=== PATIENT | female | born 1955 | race Caucasian/White ===

== ENCOUNTER 2016-07-24 18:20 | Inpatient (IN) | payer MEDICAID ==
[~2016-07-24] VITALS: Ht 162.6 cm; Wt 72.1 kg
[2016-07-24] MEDS ORDERED: AMLO5TAB66 PO (18:52)
[2016-07-24] MEDS ORDERED: HYDR25TA PO (18:52)
[2016-07-24] MEDS ORDERED: LOSA25TA21 PO (18:52)
[2016-07-24] MEDS ORDERED: BARIUM SULFATE 0.1% SUSPENSION 450 ML BOTTLE PO ONE (21:15)
[2016-07-24 21:27] LABS: BASOPHILS % (AUTO) 0.8 % (0.0-2.0); CALCIUM, TOTAL 7.3 mg/dL (8.8-10.5); CREATININE 4.89 mg/dL (0.60-1.30); EOSINOPHILS % (AUTO) 2.1 % (1.0-6.0); HEMATOCRIT 21.6 % (36-46); HEMOGLOBIN 7.2 g/dL (12.0-16.0); LYMPHOCYTES # (AUTO) 0.8 K/uL (1.0-4.8); LYMPHOCYTES % (AUTO) 17.3 % (22.0-44.0); MEAN CORPUSCULAR HEMOGLOBIN 29.2 pg (26.0-34.0); MEAN CORPUSCULAR HGB CONC 33.3 G/dL (31.0-37.0); MEAN CORPUSCULAR VOLUME 88 fL (80-100); MONOCYTES # (AUTO) 0.4 K/uL (0.1-1.0); MONOCYTES % (AUTO) 8.4 % (2.0-9.0); NEUTROPHILS # (AUTO) 3.4 K/uL (1.8-7.7); NEUTROPHILS % (AUTO) 71.4 % (40.0-70.0); PLATELET COUNT (AUTO) 326 K/uL (150-450); POTASSIUM 3.4 mmol/L (3.5-5.1); RED BLOOD CELL COUNT(AUTO) 2.47 MIL/uL (4.00-5.20); WHITE BLOOD COUNT (AUTO) 4.8 K/uL (4.5-11.0)
[2016-07-24] MEDS ORDERED: MORPHINE SULFATE 2 MG/ML SYRINGE IVP ONE (21:30)
[2016-07-24] MEDS ORDERED: SODIUM CHLORIDE 0.9% 1,000 ML IV ONE (21:30)
[2016-07-24] MEDS ORDERED: ONDANSETRON HCL 4 MG/2 ML VIAL IVP ONE (21:30)
[2016-07-24 21:33] LABS: ALBUMIN 3.5 g/dL (3.4-5.0); BILIRUBIN,TOTAL 0.1 mg/dL (0.1-1.0); TOTAL PROTEIN, SERUM 6.8 g/dL (6.4-8.2)
[2016-07-24 21:38] LABS: APPEARANCE,URINE CLOUDY (CLEAR); GLUCOSE, URINE (UA) NEGATIVE (NEGATIVE); KETONES,URINE NEGATIVE (NEGATIVE); LEUKOCYTE ESTERASE ,URINE TRACE (NEGATIVE); OCCULT BLOOD,URINE SMALL (NEGATIVE); PH,URINE 5.5 (5.0-8.0); PROTEIN,URINE SEE CONFIRM (NEGATIVE)
[2016-07-24 21:41] LABS: ADD UA MICROSCOPIC YES
[2016-07-24 22:02] LABS: SULFOSALICYLIC ACID,URINE 3+ (Negative)
[2016-07-24 22:03] LABS: SQUAMOUS EPITHELIAL CELL,UR Moderate /LPF (None Seen)
[2016-07-24 22:04] LABS: RBC,URINE 0-2 /HPF (0-2)
[2016-07-25] VITALS (10 sets, daily range): BP systolic 135–155; BP diastolic 66–99
[2016-07-25] MEDS ORDERED: CefTRIAXone 1 GM/DEXTROSE 50 ML IV ONE (01:45)
[2016-07-25] MEDS ORDERED: ACETAMINOPHEN 325 MG TABLET PO PRN ×2 (02:00→10:45)
[2016-07-25] MEDS ORDERED: ONDANSETRON HCL 4 MG/2 ML VIAL IVP PRN ×2 (02:00→10:45)
[2016-07-25] MEDS ORDERED: 0.9% SODIUM CHLORIDE 10 ML SYRINGE IVP PRN (02:00)
[2016-07-25] MEDS ORDERED: PNEUMOCOCCAL VACCINE POLYVALENT 0.5 ML VIAL [PPSV23] IM ONE (04:30)
[2016-07-25] MEDS ORDERED: INFLUENZA VIRUS VACCINE QVS 2016-17 (3YR+)/PF 60 MCG/0.5 ML SYRINGE IM ONE ×2 (04:30→17:15)
[2016-07-25] MEDS ORDERED: ALBUTEROL SULFATE 2.5 MG/0.5 ML NEB SOLUTION NEB PRN (10:45)
[2016-07-25] MEDS ORDERED: BISACODYL 10 MG RECTAL RECTAL SUPPOSITORY PR PRN (10:45)
[2016-07-25] MEDS ORDERED: MORPHINE SULFATE 2 MG/ML SYRINGE IVP PRN (10:45)
[2016-07-25] MEDS ORDERED: LOSARTAN POTASSIUM 25 MG TABLET PO SCH (10:45)
[2016-07-25] MEDS ORDERED: MAGNESIUM HYDROXIDE SUSPENSION 30 ML UDCUP PO PRN (10:45)
[2016-07-25] MEDS ORDERED: ZOLPIDEM TARTRATE 5 MG TABLET PO PRN (10:45)
[2016-07-25] MEDS ORDERED: IPRATROPIUM BROMIDE 0.5 MG/2.5 ML NEB SOLUTION NEB PRN (10:45)
[2016-07-25 11:01] LABS: BASOPHILS # (AUTO) 0.04 K/uL (0.00-0.20); BASOPHILS % (AUTO) 0.8 % (0.0-2.0); EOSINOPHILS % (AUTO) 2.29 % (1.0-6.0); LYMPHOCYTES # (AUTO) 0.7 K/uL (1.0-4.8); LYMPHOCYTES % (AUTO) 16.2 % (22.0-44.0); MEAN CORPUSCULAR HEMOGLOBIN 29.3 pg (26.0-34.0); MEAN CORPUSCULAR HGB CONC 34.4 G/dL (31.0-37.0); MEAN CORPUSCULAR VOLUME 85 fL (80-100); MONOCYTES # (AUTO) 0.4 K/uL (0.1-1.0); NEUTROPHILS # (AUTO) 3.1 K/uL (1.8-7.7); NEUTROPHILS % (AUTO) 71.7 % (40.0-70.0); PLATELET COUNT (AUTO) 317 K/uL (150-450); RED BLOOD CELL COUNT(AUTO) 2.37 MIL/uL (4.00-5.20); RED CELL DISTRIBUTION WIDTH 14.8 % (11.5-14.5); WHITE BLOOD COUNT (AUTO) 4.3 K/uL (4.5-11.0)
[2016-07-25 11:06] LABS: HEMATOCRIT 20.2 % (36-46)
[2016-07-25] MEDS: AmLODIPine BESYLATE 10 MG TABLET PO SCH (11:12)
[2016-07-25 11:15] LABS: CALCIUM, TOTAL 7.3 mg/dL (8.8-10.5); CREATININE 4.65 mg/dL (0.60-1.30); POTASSIUM 3.3 mmol/L (3.5-5.1)
[2016-07-25 11:22] LABS: ALBUMIN 3.2 g/dL (3.4-5.0); BILIRUBIN,TOTAL 0.1 mg/dL (0.1-1.0); TOTAL PROTEIN, SERUM 6.5 g/dL (6.4-8.2)
[2016-07-25] MEDS ORDERED: SODIUM CHLORIDE 0.9% 250 ML IV ONE (11:57)
[2016-07-25 13:14] LABS: MAGNESIUM 1.8 mg/dL (1.80-2.40); PHOSPHORUS 6.4 mg/dL (2.5-4.9)
[2016-07-25] MEDS ORDERED: FUROSEMIDE 20 MG/2 ML VIAL ONE ×2 (14:36)
[2016-07-25] MEDS ORDERED: MERTIATIDE TC99M ISOTOPE 1 EA INJ INJ ONE (14:40)
[2016-07-25] MEDS ORDERED: FUROSEMIDE 20 MG/2 ML VIAL IVP ONE (14:50)
[2016-07-25] MEDS: HEPARIN SODIUM,PORCINE 5,000 UNITS/ML VIAL SQ SCH ×2 (16:00→23:55)
[2016-07-25] MEDS: DOCUSATE SODIUM 100 MG CAPSULE PO SCH (22:10)
[2016-07-26] VITALS (8 sets, daily range): BP systolic 128–150; BP diastolic 83–98
[2016-07-26 08:16] LABS: BASOPHILS # (AUTO) 0.03 K/uL (0.00-0.20); BASOPHILS % (AUTO) 0.7 % (0.0-2.0); EOSINOPHILS # (AUTO) 0.09 K/uL (0.00-0.70); EOSINOPHILS % (AUTO) 2.06 % (1.0-6.0); HEMATOCRIT 24.1 % (36-46); HEMOGLOBIN 8.3 g/dL (12.0-16.0); LYMPHOCYTES # (AUTO) 0.6 K/uL (1.0-4.8); LYMPHOCYTES % (AUTO) 14.3 % (22.0-44.0); MEAN CORPUSCULAR HEMOGLOBIN 29.7 pg (26.0-34.0); MEAN CORPUSCULAR HGB CONC 34.3 G/dL (31.0-37.0); MEAN CORPUSCULAR VOLUME 87 fL (80-100); MONOCYTES # (AUTO) 0.3 K/uL (0.1-1.0); MONOCYTES % (AUTO) 7.3 % (2.0-9.0); NEUTROPHILS # (AUTO) 3.2 K/uL (1.8-7.7); NEUTROPHILS % (AUTO) 75.7 % (40.0-70.0); PLATELET COUNT (AUTO) 295 K/uL (150-450); RED BLOOD CELL COUNT(AUTO) 2.78 MIL/uL (4.00-5.20); WHITE BLOOD COUNT (AUTO) 4.2 K/uL (4.5-11.0)
[2016-07-26] MEDS: DOCUSATE SODIUM 100 MG CAPSULE PO SCH ×2 (08:31→19:51)
[2016-07-26] MEDS: AmLODIPine BESYLATE 10 MG TABLET PO SCH (08:31)
[2016-07-26] MEDS: HEPARIN SODIUM,PORCINE 5,000 UNITS/ML VIAL SQ SCH ×3 (08:32→22:45)
[2016-07-26] MEDS: PANTOPRAZOLE SODIUM 40 MG/VIAL IVP SCH (08:33)
[2016-07-26 08:44] LABS: ALBUMIN 3.2 g/dL (3.4-5.0); BILIRUBIN,TOTAL 0.3 mg/dL (0.1-1.0); CALCIUM, TOTAL 7.9 mg/dL (8.8-10.5); CREATININE 4.73 mg/dL (0.60-1.30); POTASSIUM 3.1 mmol/L (3.5-5.1); TOTAL PROTEIN, SERUM 6.4 g/dL (6.4-8.2)
[2016-07-26] MEDS ORDERED: POTASSIUM CHLORIDE 20 MEQ ER TABLET PO ONE (09:30)
[2016-07-26] MEDS: OxyCODONE HCL/ACETAMINOPHEN 5-325 MG TABLET PO PRN ×2 (14:23→22:44)
[2016-07-27 05:01] VITALS: BP 132/82
[2016-07-27] MEDS: DOCUSATE SODIUM 100 MG CAPSULE PO SCH ×2 (07:49→19:59)
[2016-07-27] MEDS: PANTOPRAZOLE SODIUM 40 MG/VIAL IVP SCH (07:49)
[2016-07-27] MEDS: HEPARIN SODIUM,PORCINE 5,000 UNITS/ML VIAL SQ SCH ×2 (07:49→16:46)
[2016-07-27] MEDS: AmLODIPine BESYLATE 10 MG TABLET PO SCH (07:49)
[2016-07-27 08:04] LABS: BASOPHILS % (AUTO) 0.2 % (0.0-2.0); EOSINOPHILS % (AUTO) 2.4 % (1.0-6.0); HEMATOCRIT 25.3 % (36-46); HEMOGLOBIN 8.6 g/dL (12.0-16.0); LYMPHOCYTES # (AUTO) 0.9 K/uL (1.0-4.8); LYMPHOCYTES % (AUTO) 12.6 % (22.0-44.0); MEAN CORPUSCULAR HEMOGLOBIN 29.6 pg (26.0-34.0); MEAN CORPUSCULAR HGB CONC 33.9 G/dL (31.0-37.0); MEAN CORPUSCULAR VOLUME 88 fL (80-100); MONOCYTES # (AUTO) 0.4 K/uL (0.1-1.0); MONOCYTES % (AUTO) 5.5 % (2.0-9.0); NEUTROPHILS # (AUTO) 5.9 K/uL (1.8-7.7); NEUTROPHILS % (AUTO) 79.3 % (40.0-70.0); PLATELET COUNT (AUTO) 346 K/uL (150-450); RED BLOOD CELL COUNT(AUTO) 2.89 MIL/uL (4.00-5.20); RED CELL DISTRIBUTION WIDTH 13.3 % (11.5-14.5); WHITE BLOOD COUNT (AUTO) 7.5 K/uL (4.5-11.0)
[2016-07-27 08:13] VITALS: BP 156/99
[2016-07-27 10:32] LABS: CALCIUM, TOTAL 7.9 mg/dL (8.8-10.5); CREATININE 4.9 mg/dL (0.60-1.30)
[2016-07-27 10:35] LABS: MAGNESIUM 1.9 mg/dL (1.80-2.40); PHOSPHORUS 7.8 mg/dL (2.5-4.9)
[2016-07-27 11:20] VITALS: BP 146/77
[2016-07-27] MEDS: OxyCODONE HCL/ACETAMINOPHEN 5-325 MG TABLET PO PRN (11:32)
[2016-07-27 15:36] VITALS: BP 151/88
[2016-07-27 20:36] VITALS: BP 134/85
[2016-07-28] VITALS (7 sets, daily range): BP systolic 135–149; BP diastolic 75–94
[2016-07-28] MEDS: HEPARIN SODIUM,PORCINE 5,000 UNITS/ML VIAL SQ SCH ×4 (00:06→23:26)
[2016-07-28 08:41] LABS: BASOPHILS % (AUTO) 0.3 % (0.0-2.0); EOSINOPHILS % (AUTO) 0.9 % (1.0-6.0); HEMATOCRIT 24.9 % (36-46); HEMOGLOBIN 8.3 g/dL (12.0-16.0); LYMPHOCYTES # (AUTO) 0.6 K/uL (1.0-4.8); MEAN CORPUSCULAR HEMOGLOBIN 29.2 pg (26.0-34.0); MEAN CORPUSCULAR HGB CONC 33.2 G/dL (31.0-37.0); MEAN CORPUSCULAR VOLUME 88 fL (80-100); MONOCYTES # (AUTO) 0.3 K/uL (0.1-1.0); MONOCYTES % (AUTO) 4.5 % (2.0-9.0); NEUTROPHILS # (AUTO) 6.6 K/uL (1.8-7.7); PLATELET COUNT (AUTO) 299 K/uL (150-450); RED BLOOD CELL COUNT(AUTO) 2.83 MIL/uL (4.00-5.20); RED CELL DISTRIBUTION WIDTH 13.6 % (11.5-14.5); WHITE BLOOD COUNT (AUTO) 7.7 K/uL (4.5-11.0)
[2016-07-28 08:43] LABS: NEUTROPHILS % (AUTO) 86.3 % (40.0-70.0)
[2016-07-28 09:01] LABS: CALCIUM, TOTAL 8.1 mg/dL (8.8-10.5); CREATININE 4.82 mg/dL (0.60-1.30); PHOSPHORUS 7.3 mg/dL (2.5-4.9); POTASSIUM 3.7 mmol/L (3.5-5.1)
[2016-07-28] MEDS: AmLODIPine BESYLATE 10 MG TABLET PO SCH (09:19)
[2016-07-28] MEDS: DOCUSATE SODIUM 100 MG CAPSULE PO SCH ×2 (09:19→20:06)
[2016-07-28] MEDS: PANTOPRAZOLE SODIUM 40 MG/VIAL IVP SCH (12:54)
[2016-07-28] MEDS ORDERED: AMLO-512 PO (17:37)
[2016-07-29 04:26] VITALS: BP 141/79
[2016-07-29 06:12] LABS: ALPHA-1 URINE (ELP) 4.2 %; ALPHA-2 URINE(ELP) 11.5 %; BETA URINE(ELP) 18.8 %; GAMMA URINE(ELP) 15.1 %; TOTAL PROTEIN URINE 398.4 mg/dL (Not Estab.)
[2016-07-29 06:12] LABS: ALBUMIN (IFE & ELECTROPHOR) 3.3 g/dL (2.9-4.4); ALBUMIN/GLOBULIN RATIO (IFE) 1.4 (0.7-1.7); ALPHA-2 (IFE & PEP) 0.6 g/dL (0.4-1.0); IGG (IMMUNOFIXATION) 590 mg/dL (700-1600); M-SPIKE (IEP) Not Observed g/dL (Not Observed); TOTAL PROTEIN 5.7 g/dL (6.0-8.5)
[2016-07-29 08:26] VITALS: BP 151/94
[2016-07-29 08:35] LABS: BASOPHILS # (AUTO) 0.02 K/uL (0.00-0.20); BASOPHILS % (AUTO) 0.3 % (0.0-2.0); EOSINOPHILS # (AUTO) 0.02 K/uL (0.00-0.70); HEMATOCRIT 23.1 % (36-46); HEMOGLOBIN 7.9 g/dL (12.0-16.0); LYMPHOCYTES # (AUTO) 0.4 K/uL (1.0-4.8); LYMPHOCYTES % (AUTO) 6.1 % (22.0-44.0); MEAN CORPUSCULAR HEMOGLOBIN 29.5 pg (26.0-34.0); MEAN CORPUSCULAR HGB CONC 34.3 G/dL (31.0-37.0); MEAN CORPUSCULAR VOLUME 86 fL (80-100); MONOCYTES # (AUTO) 0.3 K/uL (0.1-1.0); MONOCYTES % (AUTO) 5.5 % (2.0-9.0); NEUTROPHILS # (AUTO) 5.3 K/uL (1.8-7.7); PLATELET COUNT (AUTO) 274 K/uL (150-450); RED BLOOD CELL COUNT(AUTO) 2.68 MIL/uL (4.00-5.20); RED CELL DISTRIBUTION WIDTH 14.1 % (11.5-14.5); WHITE BLOOD COUNT (AUTO) 6.1 K/uL (4.5-11.0)
[2016-07-29 08:41] LABS: NEUTROPHILS % (AUTO) 87.6 % (40.0-70.0)
[2016-07-29] MEDS: PANTOPRAZOLE SODIUM 40 MG/VIAL IVP SCH (08:44)
[2016-07-29] MEDS: AmLODIPine BESYLATE 10 MG TABLET PO SCH (08:48)
[2016-07-29] MEDS: HEPARIN SODIUM,PORCINE 5,000 UNITS/ML VIAL SQ SCH ×2 (08:48→16:42)
[2016-07-29] MEDS: DOCUSATE SODIUM 100 MG CAPSULE PO SCH (08:48)
[2016-07-29] MEDS ORDERED: ERGOCALCIFEROL (VIT D2) 50,000 UNITS CAPSULE PO SCH (09:00)
[2016-07-29] MEDS ORDERED: LOSARTAN POTASSIUM 25 MG TABLET PO SCH (11:30)
[2016-07-29] MEDS ORDERED: IRON SUCROSE COMPLEX 100 MG in SODIUM CHLORIDE 0.9% 100 ML IV SCH (12:00)
[2016-07-29 12:25] VITALS: BP 143/87
[2016-07-29] MEDS ORDERED: SODIUM CHLORIDE 0.9% 500 ML IV ONE (13:05)
[2016-07-29] MEDS ORDERED: FERR-89 PO (14:58)
[2016-07-29] MEDS ORDERED: DSS100 PO (15:00)
[2016-07-29 16:02] VITALS: BP 131/74
[2016-10-05] MEDS ORDERED: SOD62.5V IV (16:43)
== END 2016-07-29 19:31 | disposition home or self-care (01) | DRG 282 ==
LOC: EMS 18:26 → 6N 07-25 01:47
PROVIDERS: ADMIT Hospitalist; ATTEND Hospitalist
PROC: 30233N1 Transfusion of Nonautologous Red Blood Cells into Peripheral Vein, Percutaneous Approach (ICD-10-PCS; principal; 2016-07-25)
DX: K85.90 Acute pancreatitis without necrosis or infection, unspecified (principal); N17.9 Acute kidney failure, unspecified; N18.4 Chronic kidney disease, stage 4 (severe); N13.2 Hydronephrosis with renal and ureteral calculous obstruction; E55.9 Vitamin D deficiency, unspecified; E83.51 Hypocalcemia; D50.9 Iron deficiency anemia, unspecified; I12.9 Hypertensive chronic kidney disease with stage 1 through stage 4 chronic kidney disease, or unspecified chronic kidney disease; E87.6 Hypokalemia; Z28.21 Immunization not carried out because of patient refusal; Z79.899 Other long term (current) drug therapy; Z90.710 Acquired absence of both cervix and uterus; Z98.890 Other specified postprocedural states; Z87.442 Personal history of urinary calculi; Z87.440 Personal history of urinary (tract) infections
CPT/HCPCS: 74176; 78707; 82270; 82271; 82306; 82607; 82652; 82746; 82784; 83540; 83550; 83735; 83883; 83930; 83935; 83970; 84100; 84133; 84155; 84156; 84165; 84166; 84300; 84540; 86334; 86850; 86900; 86901; 86920; 87081; 87086; 96361; 96365; 96375; 99285; A9562; C9113; J0696; J1644; J1756; J1940; J2270; J2405; J7030; J7040; J7050; P9016

== ENCOUNTER 2016-09-11 11:15 | Inpatient (IN) | payer OTHER, MEDICAID ==
[~2016-09-11] VITALS: Ht 157.5 cm; Wt 73.5 kg
[~2016-09-11 11:15] MED LIST: AMLO-512 PO; DSS100 PO; FERS325 PO
[2016-09-11 13:12] LABS: BASOPHILS # (AUTO) 0.02 K/uL (0.00-0.20); BASOPHILS % (AUTO) 0.6 % (0.0-2.0); EOSINOPHILS # (AUTO) 0.05 K/uL (0.00-0.70); EOSINOPHILS % (AUTO) 1.35 % (1.0-6.0); HEMATOCRIT 21.4 % (36-46); HEMOGLOBIN 7.2 g/dL (12.0-16.0); LYMPHOCYTES # (AUTO) 0.4 K/uL (1.0-4.8); LYMPHOCYTES % (AUTO) 11.3 % (22.0-44.0); MEAN CORPUSCULAR HEMOGLOBIN 29.1 pg (26.0-34.0); MEAN CORPUSCULAR HGB CONC 33.7 G/dL (31.0-37.0); MEAN CORPUSCULAR VOLUME 86 fL (80-100); MONOCYTES # (AUTO) 0.3 K/uL (0.1-1.0); MONOCYTES % (AUTO) 7.3 % (2.0-9.0); NEUTROPHILS # (AUTO) 3.1 K/uL (1.8-7.7); NEUTROPHILS % (AUTO) 79.5 % (40.0-70.0); PLATELET COUNT (AUTO) 286 K/uL (150-450); RED BLOOD CELL COUNT(AUTO) 2.47 MIL/uL (4.00-5.20); RED CELL DISTRIBUTION WIDTH 16.5 % (11.5-14.5); WHITE BLOOD COUNT (AUTO) 3.9 K/uL (4.5-11.0)
[2016-09-11 13:23] LABS: CALCIUM, TOTAL 7.1 mg/dL (8.8-10.5); CREATININE 6.48 mg/dL (0.60-1.30); POTASSIUM 3.1 mmol/L (3.5-5.1)
[2016-09-11 13:32] LABS: ALBUMIN 3.1 g/dL (3.4-5.0); BILIRUBIN,TOTAL 0.3 mg/dL (0.1-1.0); TOTAL PROTEIN, SERUM 6.4 g/dL (6.4-8.2)
[2016-09-11 14:35] LABS: ADD UA MICROSCOPIC YES; APPEARANCE,URINE CLOUDY (CLEAR); GLUCOSE, URINE (UA) NEGATIVE (NEGATIVE); KETONES,URINE NEGATIVE (NEGATIVE); LEUKOCYTE ESTERASE ,URINE NEGATIVE (NEGATIVE); OCCULT BLOOD,URINE LARGE (NEGATIVE); PH,URINE 5.5 (5.0-8.0); PROTEIN,URINE SEE CONFIRM (NEGATIVE)
[2016-09-11 14:42] LABS: SULFOSALICYLIC ACID,URINE 4+ (Negative)
[2016-09-11 14:43] LABS: RBC,URINE 26-50 /HPF (0-2)
[2016-09-11 14:44] LABS: SQUAMOUS EPITHELIAL CELL,UR Few /LPF (None Seen)
[2016-09-11] MEDS ORDERED: ONDANSETRON HCL 4 MG/2 ML VIAL IVP PRN (20:30)
[2016-09-11] MEDS ORDERED: ZOLPIDEM TARTRATE 5 MG TABLET PO PRN (20:30)
[2016-09-11 21:59] VITALS: BP 161/89
[2016-09-11] MEDS ORDERED: PNEUMOCOCCAL VACCINE POLYVALENT 0.5 ML VIAL [PPSV23] IM ONE (22:30)
[2016-09-11] MEDS ORDERED: INFLUENZA VIRUS VACCINE QVS 2016-17 (3YR+)/PF 60 MCG/0.5 ML SYRINGE IM ONE (22:30)
[2016-09-12] MEDS: HEPARIN SODIUM,PORCINE 5,000 UNITS/ML VIAL SQ SCH ×4 (00:48→23:22)
[2016-09-12 04:00] VITALS: BP 150/96
[2016-09-12 06:27] LABS: BASOPHILS % (AUTO) 0.4 % (0.0-2.0); EOSINOPHILS % (AUTO) 2.1 % (1.0-6.0); HEMATOCRIT 21.8 % (36-46); HEMOGLOBIN 7.3 g/dL (12.0-16.0); LYMPHOCYTES # (AUTO) 0.7 K/uL (1.0-4.8); LYMPHOCYTES % (AUTO) 12.3 % (22.0-44.0); MEAN CORPUSCULAR HEMOGLOBIN 29.2 pg (26.0-34.0); MEAN CORPUSCULAR HGB CONC 33.3 G/dL (31.0-37.0); MEAN CORPUSCULAR VOLUME 88 fL (80-100); MONOCYTES # (AUTO) 0.4 K/uL (0.1-1.0); MONOCYTES % (AUTO) 6.6 % (2.0-9.0); NEUTROPHILS # (AUTO) 4.3 K/uL (1.8-7.7); NEUTROPHILS % (AUTO) 78.6 % (40.0-70.0); PLATELET COUNT (AUTO) 325 K/uL (150-450); RED BLOOD CELL COUNT(AUTO) 2.48 MIL/uL (4.00-5.20); RED CELL DISTRIBUTION WIDTH 15.9 % (11.5-14.5); WHITE BLOOD COUNT (AUTO) 5.5 K/uL (4.5-11.0)
[2016-09-12 06:50] LABS: BILIRUBIN,TOTAL 0.2 mg/dL (0.1-1.0); CALCIUM, TOTAL 6.8 mg/dL (8.8-10.5); CREATININE 6.58 mg/dL (0.60-1.30); POTASSIUM 3.5 mmol/L (3.5-5.1); TOTAL PROTEIN, SERUM 6.3 g/dL (6.4-8.2)
[2016-09-12 08:13] VITALS: BP 150/97
[2016-09-12] MEDS: AmLODIPine BESYLATE 10 MG TABLET PO SCH (08:21)
[2016-09-12] MEDS: PANTOPRAZOLE SODIUM 40 MG DR TABLET PO SCH (08:21)
[2016-09-12 11:22] VITALS: BP 140/82
[2016-09-12] MEDS: OxyCODONE HCL/ACETAMINOPHEN 5-325 MG TABLET PO PRN (13:38)
[2016-09-12 15:38] VITALS: BP 139/78
[2016-09-12] MEDS: SOD FERRIC GLUC COMPLX/SUCROSE 125 MG in SODIUM CHLORIDE 0.9% 100 ML IV SCH (16:44)
[2016-09-12] MEDS: SODIUM BICARBONATE 75 MEQ in DEXTROSE 5%-0.45% SODIUM CHL 1,000 ML IV SCH (16:45)
[2016-09-12] MEDS: ACETAMINOPHEN 325 MG TABLET PO PRN (16:45)
[2016-09-12 19:20] VITALS: BP 137/71
[2016-09-12 23:03] VITALS: BP 139/83
[2016-09-13] VITALS (23 sets, daily range): BP systolic 131–151; BP diastolic 76–100
[2016-09-13] MEDS: SODIUM BICARBONATE 75 MEQ in DEXTROSE 5%-0.45% SODIUM CHL 1,000 ML IV SCH (05:05)
[2016-09-13] MEDS: OxyCODONE HCL/ACETAMINOPHEN 5-325 MG TABLET PO PRN ×2 (05:28→11:21)
[2016-09-13 06:57] LABS: BASOPHILS % (AUTO) 0.2 % (0.0-2.0); EOSINOPHILS % (AUTO) 2.3 % (1.0-6.0); LYMPHOCYTES # (AUTO) 0.5 K/uL (1.0-4.8); LYMPHOCYTES % (AUTO) 9.9 % (22.0-44.0); MEAN CORPUSCULAR HEMOGLOBIN 28.9 pg (26.0-34.0); MEAN CORPUSCULAR HGB CONC 32.9 G/dL (31.0-37.0); MEAN CORPUSCULAR VOLUME 88 fL (80-100); MONOCYTES # (AUTO) 0.3 K/uL (0.1-1.0); MONOCYTES % (AUTO) 5.5 % (2.0-9.0); NEUTROPHILS # (AUTO) 4.6 K/uL (1.8-7.7); PLATELET COUNT (AUTO) 299 K/uL (150-450); RED BLOOD CELL COUNT(AUTO) 2.38 MIL/uL (4.00-5.20); RED CELL DISTRIBUTION WIDTH 16.2 % (11.5-14.5); WHITE BLOOD COUNT (AUTO) 5.6 K/uL (4.5-11.0)
[2016-09-13 07:07] LABS: HEMOGLOBIN 6.9 g/dL (12.0-16.0)
[2016-09-13 07:08] LABS: HEMATOCRIT 20.9 % (36-46); NEUTROPHILS % (AUTO) 82.1 % (40.0-70.0)
[2016-09-13 07:12] LABS: ALBUMIN 2.9 g/dL (3.4-5.0); BILIRUBIN,TOTAL 0.2 mg/dL (0.1-1.0); CALCIUM, TOTAL 6.5 mg/dL (8.8-10.5); CREATININE 6.44 mg/dL (0.60-1.30)
[2016-09-13 07:38] LABS: POTASSIUM 2.9 mmol/L (3.5-5.1)
[2016-09-13] MEDS: PANTOPRAZOLE SODIUM 40 MG DR TABLET PO SCH (08:27)
[2016-09-13] MEDS: CALCITRIOL 0.25 MCG CAPSULE PO SCH (08:27)
[2016-09-13] MEDS: AmLODIPine BESYLATE 10 MG TABLET PO SCH (08:27)
[2016-09-13] MEDS: HEPARIN SODIUM,PORCINE 5,000 UNITS/ML VIAL SQ SCH ×3 (08:28→23:49)
[2016-09-13] MEDS: DEXTROSE 5%-0.45% SODIUM CHL 1,000 ML IV SCH (08:28)
[2016-09-13] MEDS: POTASSIUM CHL 10 MEQ/WATER 50 ML IV SCH ×2 (08:28→09:51)
[2016-09-13] MEDS ORDERED: SODIUM CHLORIDE 0.9% 500 ML IV ONE (13:00)
[2016-09-13] MEDS ORDERED: POTASSIUM CHLORIDE 20 MEQ ER TABLET PO ONE (16:30)
[2016-09-13] MEDS: SOD FERRIC GLUC COMPLX/SUCROSE 125 MG in SODIUM CHLORIDE 0.9% 100 ML IV SCH (17:34)
[2016-09-14] MEDS: DEXTROSE 5%-0.45% SODIUM CHL 1,000 ML IV SCH ×2 (00:22→19:55)
[2016-09-14 05:10] VITALS: BP 123/72
[2016-09-14 05:17] VITALS: BP 150/89
[2016-09-14 06:59] LABS: BASOPHILS % (AUTO) 0.3 % (0.0-2.0); HEMATOCRIT 25.5 % (36-46); HEMOGLOBIN 8.5 g/dL (12.0-16.0); LYMPHOCYTES # (AUTO) 0.5 K/uL (1.0-4.8); LYMPHOCYTES % (AUTO) 12.7 % (22.0-44.0); MEAN CORPUSCULAR HEMOGLOBIN 28.9 pg (26.0-34.0); MEAN CORPUSCULAR HGB CONC 33.2 G/dL (31.0-37.0); MEAN CORPUSCULAR VOLUME 87 fL (80-100); MONOCYTES # (AUTO) 0.3 K/uL (0.1-1.0); MONOCYTES % (AUTO) 7.2 % (2.0-9.0); NEUTROPHILS # (AUTO) 3.1 K/uL (1.8-7.7); NEUTROPHILS % (AUTO) 75.8 % (40.0-70.0); PLATELET COUNT (AUTO) 263 K/uL (150-450); RED BLOOD CELL COUNT(AUTO) 2.93 MIL/uL (4.00-5.20); RED CELL DISTRIBUTION WIDTH 16.2 % (11.5-14.5)
[2016-09-14 07:10] LABS: ALBUMIN 2.6 g/dL (3.4-5.0); BILIRUBIN,TOTAL 0.3 mg/dL (0.1-1.0); CALCIUM, TOTAL 6.6 mg/dL (8.8-10.5); CREATININE 6.5 mg/dL (0.60-1.30); MAGNESIUM 1.5 mg/dL (1.80-2.40); PHOSPHORUS 6.7 mg/dL (2.5-4.9); POTASSIUM 3.5 mmol/L (3.5-5.1); TOTAL PROTEIN, SERUM 5.8 g/dL (6.4-8.2)
[2016-09-14] MEDS ORDERED: CefTRIAXone SODIUM 1 GM/VIAL IM ONE (08:00)
[2016-09-14] MEDS ORDERED: LIDOCAINE HCL/PF 1% 2 ML VIAL IM ONE (08:00)
[2016-09-14] MEDS ORDERED: CefTRIAXone SODIUM 1 GM/VIAL IV ONE (08:00)
[2016-09-14] MEDS: HEPARIN SODIUM,PORCINE 5,000 UNITS/ML VIAL SQ SCH ×3 (08:00→23:35)
[2016-09-14] MEDS ORDERED: FentaNYL CITRATE-PF 100 MCG/2 ML VIAL IVP PRN (08:30)
[2016-09-14] MEDS ORDERED: HYDROmorphone 2 MG/ML SYRINGE IVP PRN (08:30)
[2016-09-14] MEDS ORDERED: CefTRIAXone 1 GM/DEXTROSE 50 ML IV ONE (08:30)
[2016-09-14] MEDS ORDERED: MEPERIDINE-PF 25 MG/ML SYRINGE IVP PRN (08:30)
[2016-09-14] MEDS ORDERED: MAGNESIUM SULFATE 3 GM in DEXTROSE 5%-WATER 100 ML IV ONE (09:00)
[2016-09-14 11:10] VITALS: BP 150/76
[2016-09-14] MEDS ORDERED: 0.9% SODIUM CHLORIDE 10 ML SYRINGE IVP PRN (11:15)
[2016-09-14] MEDS ORDERED: LIDOCAINE HCL 2% 5 ML JELLY TP ONE (12:00)
[2016-09-14] MEDS ORDERED: DEXAMETHASONE SOD PHOS 4 MG/ML VIAL IVP ONE (12:00)
[2016-09-14] MEDS ORDERED: METOCLOPRAMIDE HCL 5 MG/ML 2 ML VIAL IVP ONE (12:00)
[2016-09-14] MEDS ORDERED: PROPOFOL 1% 20 ML VIAL IVP ONE (12:00)
[2016-09-14] MEDS ORDERED: ROCURONIUM BROMIDE 10 MG/ML 5 ML VIAL IVP ONE (12:00)
[2016-09-14] MEDS ORDERED: ONDANSETRON HCL 4 MG/2 ML VIAL IVP ONE (12:00)
[2016-09-14] MEDS ORDERED: NEOSTIGMINE METHYLSULFATE 1 MG/ML 10 ML VIAL IVP ONE (12:00)
[2016-09-14] MEDS: PANTOPRAZOLE SODIUM 40 MG DR TABLET PO SCH (12:11)
[2016-09-14] MEDS: CALCITRIOL 0.25 MCG CAPSULE PO SCH (12:12)
[2016-09-14] MEDS: AmLODIPine BESYLATE 10 MG TABLET PO SCH (12:12)
[2016-09-14] MEDS: CALCIUM ACETATE 667 MG CAPSULE PO SCH ×2 (14:55→18:26)
[2016-09-14] MEDS: SOD FERRIC GLUC COMPLX/SUCROSE 125 MG in SODIUM CHLORIDE 0.9% 100 ML IV SCH (14:56)
[2016-09-14 15:15] VITALS: BP 141/98
[2016-09-14] MEDS: OxyCODONE HCL/ACETAMINOPHEN 5-325 MG TABLET PO PRN (19:50)
[2016-09-14] MEDS ORDERED: IOHEXOL 240 MG/ML 20 ML VIAL ONE (19:57)
[2016-09-14] MEDS ORDERED: SODIUM CL IRRIG SOLN BAG 3,000 ML IRRIG ONE (19:57)
[2016-09-14] MEDS ORDERED: RINGERS SOLUTION,LACTATED 1,000 ML IV ONE (19:57)
[2016-09-14 20:19] VITALS: BP 134/87
[2016-09-15] VITALS (7 sets, daily range): BP systolic 135–153; BP diastolic 82–95
[2016-09-15] MEDS: OxyCODONE HCL/ACETAMINOPHEN 5-325 MG TABLET PO PRN (05:56)
[2016-09-15 07:10] LABS: BASOPHILS % (AUTO) 0.2 % (0.0-2.0); HEMATOCRIT 26.3 % (36-46); HEMOGLOBIN 8.7 g/dL (12.0-16.0); LYMPHOCYTES # (AUTO) 0.4 K/uL (1.0-4.8); LYMPHOCYTES % (AUTO) 6.4 % (22.0-44.0); MEAN CORPUSCULAR HEMOGLOBIN 29.1 pg (26.0-34.0); MEAN CORPUSCULAR HGB CONC 33.1 G/dL (31.0-37.0); MEAN CORPUSCULAR VOLUME 88 fL (80-100); MONOCYTES # (AUTO) 0.3 K/uL (0.1-1.0); NEUTROPHILS # (AUTO) 5.1 K/uL (1.8-7.7); PLATELET COUNT (AUTO) 270 K/uL (150-450); RED BLOOD CELL COUNT(AUTO) 2.98 MIL/uL (4.00-5.20); RED CELL DISTRIBUTION WIDTH 15.7 % (11.5-14.5); WHITE BLOOD COUNT (AUTO) 5.8 K/uL (4.5-11.0)
[2016-09-15 07:22] LABS: ALBUMIN 2.9 g/dL (3.4-5.0); BILIRUBIN,TOTAL 0.3 mg/dL (0.1-1.0); CALCIUM, TOTAL 7.7 mg/dL (8.8-10.5); CREATININE 6.42 mg/dL (0.60-1.30); MAGNESIUM 2.3 mg/dL (1.80-2.40); PHOSPHORUS 6.9 mg/dL (2.5-4.9); POTASSIUM 3.6 mmol/L (3.5-5.1); TOTAL PROTEIN, SERUM 6.2 g/dL (6.4-8.2)
[2016-09-15 07:33] LABS: NEUTROPHILS % (AUTO) 87.4 % (40.0-70.0)
[2016-09-15] MEDS: OXYGEN THERAPY IH SCH ×2 (08:00→20:00)
[2016-09-15] MEDS: CALCIUM ACETATE 667 MG CAPSULE PO SCH ×3 (08:37→18:57)
[2016-09-15] MEDS: HEPARIN SODIUM,PORCINE 5,000 UNITS/ML VIAL SQ SCH ×3 (08:37→22:31)
[2016-09-15] MEDS: PANTOPRAZOLE SODIUM 40 MG DR TABLET PO SCH (08:37)
[2016-09-15] MEDS: AmLODIPine BESYLATE 10 MG TABLET PO SCH (08:37)
[2016-09-15] MEDS: CALCITRIOL 0.25 MCG CAPSULE PO SCH (08:37)
[2016-09-15] MEDS: EPOETIN ALFA 10,000 UNITS/ML VIAL SQ SCH (08:42)
[2016-09-15] MEDS: DEXTROSE 5%-0.45% SODIUM CHL 1,000 ML IV SCH ×2 (09:21→19:59)
[2016-09-15] MEDS ORDERED: FentaNYL CITRATE-PF 100 MCG/2 ML VIAL IVP ONE (12:00)
[2016-09-15] MEDS ORDERED: MIDAZOLAM HCL 2 MG/2 ML VIAL IVP ONE (12:00)
[2016-09-15] MEDS: SOD FERRIC GLUC COMPLX/SUCROSE 125 MG in SODIUM CHLORIDE 0.9% 100 ML IV SCH (17:42)
[2016-09-16 05:06] VITALS: BP 155/88
[2016-09-16 06:07] LABS: BASOPHILS % (AUTO) 0.1 % (0.0-2.0); EOSINOPHILS % (AUTO) 1.3 % (1.0-6.0); HEMATOCRIT 25.4 % (36-46); HEMOGLOBIN 8.4 g/dL (12.0-16.0); LYMPHOCYTES # (AUTO) 0.3 K/uL (1.0-4.8); LYMPHOCYTES % (AUTO) 5.1 % (22.0-44.0); MEAN CORPUSCULAR HGB CONC 33.2 G/dL (31.0-37.0); MEAN CORPUSCULAR VOLUME 87 fL (80-100); MONOCYTES # (AUTO) 0.3 K/uL (0.1-1.0); MONOCYTES % (AUTO) 4.7 % (2.0-9.0); NEUTROPHILS # (AUTO) 5.3 K/uL (1.8-7.7); PLATELET COUNT (AUTO) 271 K/uL (150-450); RED CELL DISTRIBUTION WIDTH 15.8 % (11.5-14.5)
[2016-09-16 06:38] LABS: NEUTROPHILS % (AUTO) 88.8 % (40.0-70.0)
[2016-09-16 07:20] LABS: ALBUMIN 2.8 g/dL (3.4-5.0); BILIRUBIN,TOTAL 0.2 mg/dL (0.1-1.0); CALCIUM, TOTAL 7.7 mg/dL (8.8-10.5); CREATININE 6.22 mg/dL (0.60-1.30); POTASSIUM 3.3 mmol/L (3.5-5.1); TOTAL PROTEIN, SERUM 6.1 g/dL (6.4-8.2)
[2016-09-16] MEDS: OXYGEN THERAPY IH SCH ×2 (08:00→20:00)
[2016-09-16] MEDS: PANTOPRAZOLE SODIUM 40 MG DR TABLET PO SCH (08:43)
[2016-09-16] MEDS: CALCIUM ACETATE 667 MG CAPSULE PO SCH ×3 (08:43→18:19)
[2016-09-16] MEDS: AmLODIPine BESYLATE 10 MG TABLET PO SCH (08:43)
[2016-09-16] MEDS: CALCITRIOL 0.25 MCG CAPSULE PO SCH (08:43)
[2016-09-16] MEDS: HEPARIN SODIUM,PORCINE 5,000 UNITS/ML VIAL SQ SCH ×2 (08:44→16:27)
[2016-09-16] MEDS: DEXTROSE 5%-0.45% SODIUM CHL 1,000 ML IV SCH (08:44)
[2016-09-16 08:47] VITALS: BP 152/97
[2016-09-16 12:00] VITALS: BP 143/81
[2016-09-16] MEDS: SOD FERRIC GLUC COMPLX/SUCROSE 125 MG in SODIUM CHLORIDE 0.9% 100 ML IV SCH (16:27)
[2016-09-16 19:21] VITALS: BP 141/88
[2016-09-16 23:42] VITALS: BP 149/90
[2016-09-17] MEDS: HEPARIN SODIUM,PORCINE 5,000 UNITS/ML VIAL SQ SCH ×4 (00:12→23:50)
[2016-09-17] MEDS: DEXTROSE 5%-0.45% SODIUM CHL 1,000 ML IV SCH (00:16)
[2016-09-17 04:50] VITALS: BP 142/85
[2016-09-17] MEDS: OXYGEN THERAPY IH SCH (08:00)
[2016-09-17 08:19] VITALS: BP 166/85
[2016-09-17] MEDS: EPOETIN ALFA 10,000 UNITS/ML VIAL SQ SCH (09:36)
[2016-09-17] MEDS: CALCIUM ACETATE 667 MG CAPSULE PO SCH ×3 (09:36→17:25)
[2016-09-17] MEDS: PANTOPRAZOLE SODIUM 40 MG DR TABLET PO SCH (09:36)
[2016-09-17] MEDS: CALCITRIOL 0.25 MCG CAPSULE PO SCH (09:36)
[2016-09-17] MEDS: AmLODIPine BESYLATE 10 MG TABLET PO SCH (09:36)
[2016-09-17 10:04] LABS: BASOPHILS % (AUTO) 0.4 % (0.0-2.0); EOSINOPHILS % (AUTO) 1.1 % (1.0-6.0); HEMATOCRIT 27.9 % (36-46); HEMOGLOBIN 9.1 g/dL (12.0-16.0); LYMPHOCYTES # (AUTO) 0.4 K/uL (1.0-4.8); LYMPHOCYTES % (AUTO) 5.8 % (22.0-44.0); MEAN CORPUSCULAR HEMOGLOBIN 28.9 pg (26.0-34.0); MEAN CORPUSCULAR HGB CONC 32.7 G/dL (31.0-37.0); MEAN CORPUSCULAR VOLUME 88 fL (80-100); MONOCYTES # (AUTO) 0.3 K/uL (0.1-1.0); MONOCYTES % (AUTO) 4.8 % (2.0-9.0); NEUTROPHILS # (AUTO) 5.4 K/uL (1.8-7.7); PLATELET COUNT (AUTO) 314 K/uL (150-450); RED BLOOD CELL COUNT(AUTO) 3.16 MIL/uL (4.00-5.20); RED CELL DISTRIBUTION WIDTH 15.9 % (11.5-14.5); WHITE BLOOD COUNT (AUTO) 6.1 K/uL (4.5-11.0)
[2016-09-17 10:12] LABS: NEUTROPHILS % (AUTO) 87.9 % (40.0-70.0)
[2016-09-17 10:20] LABS: CREATININE 6.54 mg/dL (0.60-1.30); MAGNESIUM 1.9 mg/dL (1.80-2.40); PHOSPHORUS 6.4 mg/dL (2.5-4.9); POTASSIUM 3.2 mmol/L (3.5-5.1)
[2016-09-17 11:20] VITALS: BP 147/90
[2016-09-17] MEDS ORDERED: LACTULOSE 20 GM/30 ML SOLUTION UDCUP PO ONE (12:15)
[2016-09-17] MEDS ORDERED: POTASSIUM CHLORIDE 20 MEQ ER TABLET PO ONE (12:30)
[2016-09-17] MEDS: ACETAMINOPHEN 325 MG TABLET PO PRN (12:35)
[2016-09-17 15:42] VITALS: BP 133/76
[2016-09-17] MEDS: CITRIC ACID/SODIUM CITRATE 30 ML SOLUTION UDCUP PO SCH ×2 (15:57→20:35)
[2016-09-17] MEDS: SOD FERRIC GLUC COMPLX/SUCROSE 125 MG in SODIUM CHLORIDE 0.9% 100 ML IV SCH (15:58)
[2016-09-17 19:54] VITALS: BP 144/86
[2016-09-18] VITALS (7 sets, daily range): BP systolic 138–156; BP diastolic 80–92
[2016-09-18 06:18] LABS: BASOPHILS % (AUTO) 0.4 % (0.0-2.0); EOSINOPHILS % (AUTO) 2.2 % (1.0-6.0); HEMATOCRIT 24.1 % (36-46); LYMPHOCYTES # (AUTO) 0.4 K/uL (1.0-4.8); LYMPHOCYTES % (AUTO) 7.4 % (22.0-44.0); MEAN CORPUSCULAR HEMOGLOBIN 28.9 pg (26.0-34.0); MEAN CORPUSCULAR VOLUME 88 fL (80-100); MONOCYTES # (AUTO) 0.4 K/uL (0.1-1.0); MONOCYTES % (AUTO) 6.8 % (2.0-9.0); NEUTROPHILS # (AUTO) 4.5 K/uL (1.8-7.7); NEUTROPHILS % (AUTO) 83.2 % (40.0-70.0); PLATELET COUNT (AUTO) 264 K/uL (150-450); RED BLOOD CELL COUNT(AUTO) 2.75 MIL/uL (4.00-5.20); RED CELL DISTRIBUTION WIDTH 15.8 % (11.5-14.5); WHITE BLOOD COUNT (AUTO) 5.4 K/uL (4.5-11.0)
[2016-09-18 06:31] LABS: ALBUMIN 2.6 g/dL (3.4-5.0); BILIRUBIN,TOTAL 0.2 mg/dL (0.1-1.0); CALCIUM, TOTAL 8.2 mg/dL (8.8-10.5); CREATININE 6.44 mg/dL (0.60-1.30); PHOSPHORUS 6.2 mg/dL (2.5-4.9); POTASSIUM 3.4 mmol/L (3.5-5.1); TOTAL PROTEIN, SERUM 5.8 g/dL (6.4-8.2)
[2016-09-18] MEDS: OXYGEN THERAPY IH SCH (08:00)
[2016-09-18] MEDS: CALCIUM ACETATE 667 MG CAPSULE PO SCH ×3 (08:53→18:08)
[2016-09-18] MEDS: AmLODIPine BESYLATE 10 MG TABLET PO SCH (08:53)
[2016-09-18] MEDS: CALCITRIOL 0.25 MCG CAPSULE PO SCH (08:53)
[2016-09-18] MEDS: CITRIC ACID/SODIUM CITRATE 30 ML SOLUTION UDCUP PO SCH ×2 (08:53→20:34)
[2016-09-18] MEDS: PANTOPRAZOLE SODIUM 40 MG DR TABLET PO SCH (08:53)
[2016-09-18] MEDS: HEPARIN SODIUM,PORCINE 5,000 UNITS/ML VIAL SQ SCH ×3 (08:53→23:07)
[2016-09-18] MEDS: SOD FERRIC GLUC COMPLX/SUCROSE 125 MG in SODIUM CHLORIDE 0.9% 100 ML IV SCH (16:29)
[2016-09-18] MEDS: ACETAMINOPHEN 325 MG TABLET PO PRN (23:15)
[2016-09-19 05:05] VITALS: BP 144/81
[2016-09-19] MEDS: OXYGEN THERAPY IH SCH ×2 (08:00→20:42)
[2016-09-19 08:22] VITALS: BP 148/83
[2016-09-19] MEDS: AmLODIPine BESYLATE 10 MG TABLET PO SCH (08:30)
[2016-09-19] MEDS: EPOETIN ALFA 10,000 UNITS/ML VIAL SQ SCH (08:30)
[2016-09-19] MEDS: CITRIC ACID/SODIUM CITRATE 30 ML SOLUTION UDCUP PO SCH ×2 (08:30→20:45)
[2016-09-19] MEDS: CALCITRIOL 0.25 MCG CAPSULE PO SCH (08:30)
[2016-09-19] MEDS: PANTOPRAZOLE SODIUM 40 MG DR TABLET PO SCH (08:30)
[2016-09-19] MEDS: CALCIUM ACETATE 667 MG CAPSULE PO SCH ×3 (08:30→18:14)
[2016-09-19] MEDS: HEPARIN SODIUM,PORCINE 5,000 UNITS/ML VIAL SQ SCH ×2 (08:30→16:25)
[2016-09-19 11:45] VITALS: BP 151/80
[2016-09-19 15:15] VITALS: BP 142/62
[2016-09-19] MEDS: SOD FERRIC GLUC COMPLX/SUCROSE 125 MG in SODIUM CHLORIDE 0.9% 100 ML IV SCH (16:25)
[2016-09-19 20:27] VITALS: BP 151/88
[2016-09-19] MEDS: ACETAMINOPHEN 325 MG TABLET PO PRN (20:41)
[2016-09-19 23:54] VITALS: BP 148/91
[2016-09-20] MEDS: HEPARIN SODIUM,PORCINE 5,000 UNITS/ML VIAL SQ SCH ×4 (00:29→23:18)
[2016-09-20 04:54] VITALS: BP 154/86
[2016-09-20 06:32] LABS: BASOPHILS # (AUTO) 0.03 K/uL (0.00-0.20); BASOPHILS % (AUTO) 0.6 % (0.0-2.0); EOSINOPHILS % (AUTO) 1.91 % (1.0-6.0); HEMOGLOBIN 8.1 g/dL (12.0-16.0); LYMPHOCYTES # (AUTO) 0.5 K/uL (1.0-4.8); LYMPHOCYTES % (AUTO) 8.5 % (22.0-44.0); MEAN CORPUSCULAR HGB CONC 33.6 G/dL (31.0-37.0); MEAN CORPUSCULAR VOLUME 86 fL (80-100); MONOCYTES # (AUTO) 0.4 K/uL (0.1-1.0); MONOCYTES % (AUTO) 7.7 % (2.0-9.0); NEUTROPHILS # (AUTO) 4.4 K/uL (1.8-7.7); NEUTROPHILS % (AUTO) 81.3 % (40.0-70.0); PLATELET COUNT (AUTO) 295 K/uL (150-450); RED BLOOD CELL COUNT(AUTO) 2.78 MIL/uL (4.00-5.20); WHITE BLOOD COUNT (AUTO) 5.4 K/uL (4.5-11.0)
[2016-09-20 07:00] LABS: ALBUMIN 2.6 g/dL (3.4-5.0); BILIRUBIN,TOTAL 0.2 mg/dL (0.1-1.0); CALCIUM, TOTAL 8.5 mg/dL (8.8-10.5); CREATININE 6.97 mg/dL (0.60-1.30); MAGNESIUM 2.1 mg/dL (1.80-2.40); PHOSPHORUS 6.1 mg/dL (2.5-4.9); POTASSIUM 3.6 mmol/L (3.5-5.1); TOTAL PROTEIN, SERUM 6.1 g/dL (6.4-8.2)
[2016-09-20 07:15] VITALS: BP 151/89
[2016-09-20] MEDS: OXYGEN THERAPY IH SCH ×2 (08:00→20:27)
[2016-09-20] MEDS: CITRIC ACID/SODIUM CITRATE 30 ML SOLUTION UDCUP PO SCH ×2 (08:41→20:27)
[2016-09-20] MEDS: PANTOPRAZOLE SODIUM 40 MG DR TABLET PO SCH (08:41)
[2016-09-20] MEDS: CALCIUM ACETATE 667 MG CAPSULE PO SCH ×3 (08:41→18:20)
[2016-09-20] MEDS: AmLODIPine BESYLATE 10 MG TABLET PO SCH (08:41)
[2016-09-20] MEDS: CALCITRIOL 0.25 MCG CAPSULE PO SCH (08:41)
[2016-09-20] MEDS: ACETAMINOPHEN 325 MG TABLET PO PRN (12:22)
[2016-09-20] MEDS ORDERED: SODIUM CHLORIDE 0.9% 100 ML ONE (15:59)
[2016-09-20] MEDS: SOD FERRIC GLUC COMPLX/SUCROSE 125 MG in SODIUM CHLORIDE 0.9% 100 ML IV SCH (16:04)
[2016-09-20 16:39] VITALS: BP 136/79
[2016-09-20] MEDS ORDERED: 0.9% SODIUM CHLORIDE 10 ML SYRINGE IVP PRN (17:15)
[2016-09-20 19:42] VITALS: BP 138/80
[2016-09-20 23:34] VITALS: BP 140/90
[2016-09-21 04:50] VITALS: BP 145/88
[2016-09-21 06:05] LABS: CALCIUM, TOTAL 8.8 mg/dL (8.8-10.5); CREATININE 7.15 mg/dL (0.60-1.30); POTASSIUM 3.4 mmol/L (3.5-5.1)
[2016-09-21 07:17] VITALS: BP 154/100
[2016-09-21] MEDS: HEPARIN SODIUM,PORCINE 5,000 UNITS/ML VIAL SQ SCH ×2 (08:26→16:22)
[2016-09-21] MEDS: PANTOPRAZOLE SODIUM 40 MG DR TABLET PO SCH (08:26)
[2016-09-21] MEDS: AmLODIPine BESYLATE 10 MG TABLET PO SCH (08:26)
[2016-09-21] MEDS: CITRIC ACID/SODIUM CITRATE 30 ML SOLUTION UDCUP PO SCH ×2 (08:26→22:09)
[2016-09-21] MEDS: CALCIUM ACETATE 667 MG CAPSULE PO SCH ×3 (08:26→18:00)
[2016-09-21] MEDS: CALCITRIOL 0.25 MCG CAPSULE PO SCH (08:26)
[2016-09-21] MEDS: OXYGEN THERAPY IH SCH (08:27)
[2016-09-21 15:52] VITALS: BP 139/95
[2016-09-21] MEDS: SOD FERRIC GLUC COMPLX/SUCROSE 125 MG in SODIUM CHLORIDE 0.9% 100 ML IV SCH (16:29)
[2016-09-21] MEDS: OxyCODONE HCL/ACETAMINOPHEN 5-325 MG TABLET PO PRN (16:48)
[2016-09-21 19:50] VITALS: BP 144/95
[2016-09-22 07:24] VITALS: BP 133/94
[2016-09-22 07:30] LABS: BASOPHILS % (AUTO) 0.1 % (0.0-2.0); HEMATOCRIT 25.9 % (36-46); HEMOGLOBIN 8.6 g/dL (12.0-16.0); LYMPHOCYTES # (AUTO) 0.4 K/uL (1.0-4.8); LYMPHOCYTES % (AUTO) 5.1 % (22.0-44.0); MEAN CORPUSCULAR HEMOGLOBIN 29.2 pg (26.0-34.0); MEAN CORPUSCULAR HGB CONC 33.4 G/dL (31.0-37.0); MEAN CORPUSCULAR VOLUME 87 fL (80-100); MONOCYTES # (AUTO) 0.5 K/uL (0.1-1.0); MONOCYTES % (AUTO) 7.1 % (2.0-9.0); NEUTROPHILS # (AUTO) 6.2 K/uL (1.8-7.7); PLATELET COUNT (AUTO) 314 K/uL (150-450); RED BLOOD CELL COUNT(AUTO) 2.96 MIL/uL (4.00-5.20); RED CELL DISTRIBUTION WIDTH 16.5 % (11.5-14.5); WHITE BLOOD COUNT (AUTO) 7.1 K/uL (4.5-11.0)
[2016-09-22 07:35] LABS: NEUTROPHILS % (AUTO) 86.7 % (40.0-70.0)
[2016-09-22 07:40] LABS: PROTHROMBIN TIME 10.8 SEC (9.4-11.6)
[2016-09-22 07:43] LABS: ALBUMIN 2.6 g/dL (3.4-5.0); BILIRUBIN,TOTAL 0.2 mg/dL (0.1-1.0); CALCIUM, TOTAL 8.8 mg/dL (8.8-10.5); CREATININE 7.17 mg/dL (0.60-1.30); MAGNESIUM 1.9 mg/dL (1.80-2.40); PHOSPHORUS 5.5 mg/dL (2.5-4.9); POTASSIUM 3.7 mmol/L (3.5-5.1); TOTAL PROTEIN, SERUM 6.3 g/dL (6.4-8.2)
[2016-09-22] MEDS: CALCIUM ACETATE 667 MG CAPSULE PO SCH ×3 (08:00→17:30)
[2016-09-22] MEDS: HEPARIN SODIUM,PORCINE 5,000 UNITS/ML VIAL SQ SCH ×3 (08:00→16:00)
[2016-09-22] MEDS: PANTOPRAZOLE SODIUM 40 MG DR TABLET PO SCH (08:53)
[2016-09-22] MEDS: AmLODIPine BESYLATE 10 MG TABLET PO SCH (08:53)
[2016-09-22] MEDS: EPOETIN ALFA 10,000 UNITS/ML VIAL SQ SCH (08:57)
[2016-09-22] MEDS: OXYGEN THERAPY IH SCH (08:57)
[2016-09-22] MEDS: CITRIC ACID/SODIUM CITRATE 30 ML SOLUTION UDCUP PO SCH ×2 (08:58→20:51)
[2016-09-22] MEDS ORDERED: SODIUM CHLORIDE 0.9% 1,000 ML IV ONE (11:00)
[2016-09-22] MEDS ORDERED: LACTULOSE 20 GM/30 ML SOLUTION UDCUP PO ONE (11:45)
[2016-09-22 11:54] VITALS: BP 142/79
[2016-09-22] MEDS: CALCITRIOL 0.25 MCG CAPSULE PO SCH (12:06)
[2016-09-22 17:00] VITALS: BP 142/86
[2016-09-22] MEDS: OxyCODONE HCL/ACETAMINOPHEN 5-325 MG TABLET PO PRN ×2 (17:00→23:40)
[2016-09-22] MEDS: SOD FERRIC GLUC COMPLX/SUCROSE 125 MG in SODIUM CHLORIDE 0.9% 100 ML IV SCH (17:00)
[2016-09-22 19:11] VITALS: BP 137/89
[2016-09-22] MEDS: DOCUSATE SODIUM 100 MG CAPSULE PO SCH (20:51)
[2016-09-22 23:28] VITALS: BP 152/97
[2016-09-23] VITALS (13 sets, daily range): BP systolic 126–157; BP diastolic 76–94
[2016-09-23] MEDS: OxyCODONE HCL/ACETAMINOPHEN 5-325 MG TABLET PO PRN (03:11)
[2016-09-23 06:30] LABS: BASOPHILS % (AUTO) 0.3 % (0.0-2.0); EOSINOPHILS % (AUTO) 0 % (1.0-6.0); HEMATOCRIT 22.3 % (36-46); HEMOGLOBIN 7.4 g/dL (12.0-16.0); LYMPHOCYTES # (AUTO) 0.3 K/uL (1.0-4.8); LYMPHOCYTES % (AUTO) 3.9 % (22.0-44.0); MEAN CORPUSCULAR HEMOGLOBIN 29.5 pg (26.0-34.0); MEAN CORPUSCULAR HGB CONC 33.4 G/dL (31.0-37.0); MEAN CORPUSCULAR VOLUME 88 fL (80-100); MONOCYTES # (AUTO) 0.5 K/uL (0.1-1.0); MONOCYTES % (AUTO) 7.3 % (2.0-9.0); NEUTROPHILS # (AUTO) 6.3 K/uL (1.8-7.7); PLATELET COUNT (AUTO) 302 K/uL (150-450); RED BLOOD CELL COUNT(AUTO) 2.52 MIL/uL (4.00-5.20); RED CELL DISTRIBUTION WIDTH 17.5 % (11.5-14.5); WHITE BLOOD COUNT (AUTO) 7.2 K/uL (4.5-11.0)
[2016-09-23 06:53] LABS: NEUTROPHILS % (AUTO) 88.5 % (40.0-70.0)
[2016-09-23 07:05] LABS: BILIRUBIN,TOTAL 0.3 mg/dL (0.1-1.0); CALCIUM, TOTAL 9.1 mg/dL (8.8-10.5); CREATININE 7.41 mg/dL (0.60-1.30); PHOSPHORUS 6.3 mg/dL (2.5-4.9); POTASSIUM 3.9 mmol/L (3.5-5.1); TOTAL PROTEIN, SERUM 6.4 g/dL (6.4-8.2)
[2016-09-23 07:37] LABS: RBC MORPHOLOGY COMMENT ABNORMAL RBC MORPH
[2016-09-23] MEDS: OXYGEN THERAPY IH SCH (08:00)
[2016-09-23] MEDS: CALCITRIOL 0.25 MCG CAPSULE PO SCH (10:12)
[2016-09-23] MEDS: CITRIC ACID/SODIUM CITRATE 30 ML SOLUTION UDCUP PO SCH ×2 (10:12→20:29)
[2016-09-23] MEDS: CALCIUM ACETATE 667 MG CAPSULE PO SCH ×3 (10:12→18:26)
[2016-09-23] MEDS: AmLODIPine BESYLATE 10 MG TABLET PO SCH (10:12)
[2016-09-23] MEDS: PANTOPRAZOLE SODIUM 40 MG DR TABLET PO SCH (10:12)
[2016-09-23] MEDS: DOCUSATE SODIUM 100 MG CAPSULE PO SCH ×2 (10:12→20:29)
[2016-09-23 16:12] LABS: ALBUMIN URINE (ELP24) 48.7 %; ALPHA-1 URINE (ELP24) 3.1 %; ALPHA-2 URINE(ELP24) 7.9 %; BETA URINE(ELP24) 29.5 %; GAMMA URINE(ELP24) 10.7 %; TOTAL PROTEIN URINE 539.2 mg/dL (Not Estab.)
[2016-09-23] MEDS: SOD FERRIC GLUC COMPLX/SUCROSE 125 MG in SODIUM CHLORIDE 0.9% 100 ML IV SCH (17:45)
[2016-09-23 17:48] LABS: HEMOGLOBIN 5.9 g/dL (12.0-16.0)
[2016-09-23 17:49] LABS: HEMATOCRIT 17.1 % (36-46)
[2016-09-23] MEDS: CefTRIAXone 1 GM/DEXTROSE 50 ML IV SCH ×2 (18:26→20:40)
[2016-09-23] MEDS ORDERED: DiphenhydrAMINE HCL 50 MG/ML VIAL IVP ONE (19:00)
[2016-09-23] MEDS: ACETAMINOPHEN 325 MG TABLET PO PRN (19:22)
[2016-09-24] VITALS (18 sets, daily range): BP systolic 127–154; BP diastolic 73–93
[2016-09-24] MEDS ORDERED: SODIUM CL IRRIG SOLN BOTTLE 250 ML IRRIG ONE (05:44)
[2016-09-24 06:57] LABS: BASOPHILS % (AUTO) 0.2 % (0.0-2.0); HEMATOCRIT 23.4 % (36-46); HEMOGLOBIN 7.6 g/dL (12.0-16.0); LYMPHOCYTES # (AUTO) 0.4 K/uL (1.0-4.8); LYMPHOCYTES % (AUTO) 8.1 % (22.0-44.0); MEAN CORPUSCULAR HEMOGLOBIN 28.9 pg (26.0-34.0); MEAN CORPUSCULAR HGB CONC 32.6 G/dL (31.0-37.0); MEAN CORPUSCULAR VOLUME 89 fL (80-100); MONOCYTES # (AUTO) 0.5 K/uL (0.1-1.0); MONOCYTES % (AUTO) 9.2 % (2.0-9.0); NEUTROPHILS # (AUTO) 4.4 K/uL (1.8-7.7); NEUTROPHILS % (AUTO) 81.5 % (40.0-70.0); PLATELET COUNT (AUTO) 227 K/uL (150-450); RED BLOOD CELL COUNT(AUTO) 2.64 MIL/uL (4.00-5.20); RED CELL DISTRIBUTION WIDTH 15.9 % (11.5-14.5); WHITE BLOOD COUNT (AUTO) 5.4 K/uL (4.5-11.0)
[2016-09-24 07:52] LABS: ALBUMIN 2.4 g/dL (3.4-5.0); BILIRUBIN,TOTAL 0.2 mg/dL (0.1-1.0); CALCIUM, TOTAL 8.6 mg/dL (8.8-10.5); CREATININE 7.37 mg/dL (0.60-1.30); POTASSIUM 3.9 mmol/L (3.5-5.1); TOTAL PROTEIN, SERUM 5.3 g/dL (6.4-8.2)
[2016-09-24] MEDS: CALCITRIOL 0.25 MCG CAPSULE PO SCH (08:17)
[2016-09-24] MEDS: PANTOPRAZOLE SODIUM 40 MG DR TABLET PO SCH (08:17)
[2016-09-24] MEDS: EPOETIN ALFA 10,000 UNITS/ML VIAL SQ SCH (08:17)
[2016-09-24] MEDS: CITRIC ACID/SODIUM CITRATE 30 ML SOLUTION UDCUP PO SCH ×2 (08:18→20:51)
[2016-09-24] MEDS: CALCIUM ACETATE 667 MG CAPSULE PO SCH ×3 (08:18→18:28)
[2016-09-24] MEDS: NITROFURANTOIN/NITROFURAN MAC 100 MG CAPSULE [MACROBID] PO SCH (08:18)
[2016-09-24] MEDS: AmLODIPine BESYLATE 10 MG TABLET PO SCH (08:18)
[2016-09-24] MEDS: DOCUSATE SODIUM 100 MG CAPSULE PO SCH ×2 (08:18→20:51)
[2016-09-24] MEDS: SOD FERRIC GLUC COMPLX/SUCROSE 125 MG in SODIUM CHLORIDE 0.9% 100 ML IV SCH (16:02)
[2016-09-24] MEDS: CefTRIAXone 1 GM/DEXTROSE 50 ML IV SCH (16:40)
[2016-09-24] MEDS: ACETAMINOPHEN 325 MG TABLET PO PRN (20:53)
[2016-09-25] VITALS (11 sets, daily range): BP systolic 115–155; BP diastolic 74–95
[2016-09-25] MEDS: ACETAMINOPHEN 325 MG TABLET PO PRN (01:00)
[2016-09-25 07:20] LABS: BASOPHILS % (AUTO) 0.3 % (0.0-2.0); EOSINOPHILS % (AUTO) 2.2 % (1.0-6.0); HEMATOCRIT 25.3 % (36-46); HEMOGLOBIN 8.3 g/dL (12.0-16.0); LYMPHOCYTES # (AUTO) 0.5 K/uL (1.0-4.8); LYMPHOCYTES % (AUTO) 8.4 % (22.0-44.0); MEAN CORPUSCULAR HEMOGLOBIN 29.3 pg (26.0-34.0); MEAN CORPUSCULAR VOLUME 89 fL (80-100); MONOCYTES # (AUTO) 0.5 K/uL (0.1-1.0); MONOCYTES % (AUTO) 8.2 % (2.0-9.0); NEUTROPHILS # (AUTO) 4.9 K/uL (1.8-7.7); NEUTROPHILS % (AUTO) 80.9 % (40.0-70.0); PLATELET COUNT (AUTO) 267 K/uL (150-450); RED BLOOD CELL COUNT(AUTO) 2.85 MIL/uL (4.00-5.20); RED CELL DISTRIBUTION WIDTH 16.7 % (11.5-14.5); WHITE BLOOD COUNT (AUTO) 6.1 K/uL (4.5-11.0)
[2016-09-25 07:24] LABS: PROTHROMBIN TIME 10.8 SEC (9.4-11.6)
[2016-09-25 07:33] LABS: CALCIUM, TOTAL 8.6 mg/dL (8.8-10.5); CREATININE 7.43 mg/dL (0.60-1.30); MAGNESIUM 2.1 mg/dL (1.80-2.40); PHOSPHORUS 5.6 mg/dL (2.5-4.9); POTASSIUM 3.6 mmol/L (3.5-5.1)
[2016-09-25] MEDS: CALCIUM ACETATE 667 MG CAPSULE PO SCH ×3 (08:00→18:00)
[2016-09-25] MEDS: AmLODIPine BESYLATE 10 MG TABLET PO SCH (09:00)
[2016-09-25] MEDS: DOCUSATE SODIUM 100 MG CAPSULE PO SCH ×2 (09:00→23:17)
[2016-09-25] MEDS: CITRIC ACID/SODIUM CITRATE 30 ML SOLUTION UDCUP PO SCH ×2 (09:00→23:17)
[2016-09-25] MEDS: NITROFURANTOIN/NITROFURAN MAC 100 MG CAPSULE [MACROBID] PO SCH (09:00)
[2016-09-25] MEDS: CALCITRIOL 0.25 MCG CAPSULE PO SCH (09:00)
[2016-09-25] MEDS: PANTOPRAZOLE SODIUM 40 MG DR TABLET PO SCH (09:00)
[2016-09-25] MEDS ORDERED: HEPARIN SODIUM,PORCINE 1,000 UNITS/ML VIAL IVP ONE ×3 (14:20→21:15)
[2016-09-25] MEDS ORDERED: LIDOCAINE HCL 1%/EPI 1:200,000/PF 10 ML VIAL ONE (14:43)
[2016-09-25] MEDS ORDERED: FentaNYL CITRATE-PF 100 MCG/2 ML VIAL ONE (14:43)
[2016-09-25] MEDS ORDERED: MIDAZOLAM HCL 2 MG/2 ML VIAL ONE (14:43)
[2016-09-25] MEDS ORDERED: HEPARIN SODIUM 1000 UNITS/NS 500 ML ONE (14:46)
[2016-09-25] MEDS ORDERED: HEPARIN SODIUM,PORCINE 1,000 UNITS/ML 10 ML VIAL ONE (14:46)
[2016-09-25] MEDS ORDERED: IODIXANOL 320 MG/ML 100 ML VIAL ONE (15:12)
[2016-09-25] MEDS ORDERED: LABETALOL HCL 5 MG/ML 20 ML VIAL IVP ONE ×8 (15:14→16:33)
[2016-09-25] MEDS ORDERED: FentaNYL CITRATE-PF 100 MCG/2 ML VIAL IVP ONE (16:12)
[2016-09-25] MEDS ORDERED: MIDAZOLAM HCL 2 MG/2 ML VIAL IVP ONE (16:30)
[2016-09-25] MEDS ORDERED: HydrALAZINE HCL 20 MG/ML VIAL IVP ONE (16:33)
[2016-09-25] MEDS: SOD FERRIC GLUC COMPLX/SUCROSE 125 MG in SODIUM CHLORIDE 0.9% 100 ML IV SCH (17:54)
[2016-09-25] MEDS ORDERED: SODIUM CHLORIDE 0.9% 250 ML IV ONE (20:20)
[2016-09-25] MEDS: CloNIDine HCL 0.1 MG TABLET PO PRN (20:42)
[2016-09-25] MEDS ORDERED: SODIUM CHLORIDE 0.9% 2,000 ML IV ONE (20:42)
[2016-09-25] MEDS: NITROGLYCERIN 50 MG/D5% WATER 250 ML IV PRN (21:40)
[2016-09-25] MEDS: CefTRIAXone 1 GM/DEXTROSE 50 ML IV SCH (23:58)
[2016-09-26] VITALS: BP 159/84
[2016-09-26 04:00] VITALS: BP 141/65
[2016-09-26 05:39] LABS: CALCIUM, TOTAL 7.9 mg/dL (8.8-10.5); CREATININE 5.92 mg/dL (0.60-1.30); MAGNESIUM 1.8 mg/dL (1.80-2.40); PHOSPHORUS 5.1 mg/dL (2.5-4.9); POTASSIUM 3.5 mmol/L (3.5-5.1)
[2016-09-26 05:51] LABS: BASOPHILS % (AUTO) 0.4 % (0.0-2.0); EOSINOPHILS % (AUTO) 1.8 % (1.0-6.0); LYMPHOCYTES # (AUTO) 0.4 K/uL (1.0-4.8); LYMPHOCYTES % (AUTO) 9.1 % (22.0-44.0); MEAN CORPUSCULAR HEMOGLOBIN 29.4 pg (26.0-34.0); MEAN CORPUSCULAR HGB CONC 33.3 G/dL (31.0-37.0); MEAN CORPUSCULAR VOLUME 88 fL (80-100); MONOCYTES # (AUTO) 0.3 K/uL (0.1-1.0); NEUTROPHILS # (AUTO) 3.7 K/uL (1.8-7.7); NEUTROPHILS % (AUTO) 81.7 % (40.0-70.0); PLATELET COUNT (AUTO) 221 K/uL (150-450); RED BLOOD CELL COUNT(AUTO) 2.34 MIL/uL (4.00-5.20); RED CELL DISTRIBUTION WIDTH 16.7 % (11.5-14.5); WHITE BLOOD COUNT (AUTO) 4.5 K/uL (4.5-11.0)
[2016-09-26] MEDS: NITROGLYCERIN 50 MG/D5% WATER 250 ML IV PRN ×2 (06:44→16:09)
[2016-09-26 07:09] LABS: HEMOGLOBIN 6.9 g/dL (12.0-16.0)
[2016-09-26 07:10] LABS: HEMATOCRIT 20.7 % (36-46)
[2016-09-26 08:00] VITALS: BP 147/68
[2016-09-26] MEDS ORDERED: SODIUM CHLORIDE 0.9% 250 ML IV ONE (10:32)
[2016-09-26] MEDS: NITROFURANTOIN/NITROFURAN MAC 100 MG CAPSULE [MACROBID] PO SCH (10:48)
[2016-09-26] MEDS: DOCUSATE SODIUM 100 MG CAPSULE PO SCH ×2 (10:48→20:22)
[2016-09-26] MEDS: CALCITRIOL 0.25 MCG CAPSULE PO SCH (10:48)
[2016-09-26] MEDS: CITRIC ACID/SODIUM CITRATE 30 ML SOLUTION UDCUP PO SCH (10:48)
[2016-09-26] MEDS: PANTOPRAZOLE SODIUM 40 MG DR TABLET PO SCH (10:52)
[2016-09-26] MEDS: AmLODIPine BESYLATE 10 MG TABLET PO SCH (10:52)
[2016-09-26 12:00] VITALS: BP 166/84
[2016-09-26] MEDS ORDERED: HEPARIN SODIUM,PORCINE 1,000 UNITS/ML VIAL IVP ONE ×3 (12:00→13:45)
[2016-09-26] MEDS: EPOETIN ALFA 10,000 UNITS/ML VIAL SQ SCH (13:35)
[2016-09-26] MEDS ORDERED: MANNITOL 25%-12.5 GM/50 ML VIAL IVP PRN (13:45)
[2016-09-26] MEDS ORDERED: TERAZOSIN HCL 1 MG CAPSULE PO ONE (15:15)
[2016-09-26 15:35] LABS: BASOPHILS % (AUTO) 0.3 % (0.0-2.0); HEMATOCRIT 25.2 % (36-46); HEMOGLOBIN 8.2 g/dL (12.0-16.0); LYMPHOCYTES # (AUTO) 0.3 K/uL (1.0-4.8); LYMPHOCYTES % (AUTO) 4.3 % (22.0-44.0); MEAN CORPUSCULAR HGB CONC 32.6 G/dL (31.0-37.0); MEAN CORPUSCULAR VOLUME 89 fL (80-100); MONOCYTES # (AUTO) 0.4 K/uL (0.1-1.0); MONOCYTES % (AUTO) 5.8 % (2.0-9.0); NEUTROPHILS # (AUTO) 6.1 K/uL (1.8-7.7); PLATELET COUNT (AUTO) 204 K/uL (150-450); RED BLOOD CELL COUNT(AUTO) 2.84 MIL/uL (4.00-5.20); WHITE BLOOD COUNT (AUTO) 6.9 K/uL (4.5-11.0)
[2016-09-26 15:36] LABS: NEUTROPHILS % (AUTO) 88.6 % (40.0-70.0)
[2016-09-26] MEDS ORDERED: FUROSEMIDE 40 MG TABLET PO ONE (15:45)
[2016-09-26] MEDS: SOD FERRIC GLUC COMPLX/SUCROSE 125 MG in SODIUM CHLORIDE 0.9% 100 ML IV SCH (15:56)
[2016-09-26 16:00] VITALS: BP 166/78
[2016-09-26] MEDS: CefTRIAXone 1 GM/DEXTROSE 50 ML IV SCH (17:55)
[2016-09-26] MEDS: CloNIDine HCL 0.1 MG TABLET PO PRN ×2 (18:12→22:15)
[2016-09-26 20:00] VITALS: BP 163/77
[2016-09-26] MEDS: TERAZOSIN HCL 1 MG CAPSULE PO SCH (20:21)
[2016-09-26] MEDS: FUROSEMIDE 40 MG TABLET PO SCH (20:22)
[2016-09-27] VITALS (16 sets, daily range): BP systolic 137–170; BP diastolic 73–95
[2016-09-27] MEDS: OxyCODONE HCL/ACETAMINOPHEN 5-325 MG TABLET PO PRN (01:54)
[2016-09-27] MEDS: CloNIDine HCL 0.1 MG TABLET PO PRN ×2 (02:23→06:16)
[2016-09-27] MEDS ORDERED: SODIUM CHLORIDE 0.9% 250 ML IV ONE ×2 (05:22→13:56)
[2016-09-27 06:20] LABS: BASOPHILS % (AUTO) 0.2 % (0.0-2.0); EOSINOPHILS % (AUTO) 1.1 % (1.0-6.0); HEMATOCRIT 22.7 % (36-46); HEMOGLOBIN 7.3 g/dL (12.0-16.0); LYMPHOCYTES # (AUTO) 0.4 K/uL (1.0-4.8); LYMPHOCYTES % (AUTO) 7.1 % (22.0-44.0); MEAN CORPUSCULAR HGB CONC 32.2 G/dL (31.0-37.0); MEAN CORPUSCULAR VOLUME 90 fL (80-100); MONOCYTES # (AUTO) 0.4 K/uL (0.1-1.0); MONOCYTES % (AUTO) 6.8 % (2.0-9.0); NEUTROPHILS % (AUTO) 84.8 % (40.0-70.0); PLATELET COUNT (AUTO) 201 K/uL (150-450); RED BLOOD CELL COUNT(AUTO) 2.53 MIL/uL (4.00-5.20); RED CELL DISTRIBUTION WIDTH 16.5 % (11.5-14.5); WHITE BLOOD COUNT (AUTO) 5.9 K/uL (4.5-11.0)
[2016-09-27 06:28] LABS: CALCIUM, TOTAL 7.7 mg/dL (8.8-10.5); CREATININE 4.23 mg/dL (0.60-1.30); POTASSIUM 3.6 mmol/L (3.5-5.1)
[2016-09-27] MEDS: CALCIUM ACETATE 667 MG CAPSULE PO SCH ×3 (08:00→18:01)
[2016-09-27] MEDS: DOCUSATE SODIUM 100 MG CAPSULE PO SCH ×2 (09:00→21:24)
[2016-09-27] MEDS: NITROFURANTOIN/NITROFURAN MAC 100 MG CAPSULE [MACROBID] PO SCH (09:07)
[2016-09-27] MEDS: FUROSEMIDE 40 MG TABLET PO SCH ×2 (09:07→21:24)
[2016-09-27] MEDS: CALCITRIOL 0.25 MCG CAPSULE PO SCH (09:07)
[2016-09-27] MEDS: AmLODIPine BESYLATE 10 MG TABLET PO SCH (09:07)
[2016-09-27] MEDS: PANTOPRAZOLE SODIUM 40 MG DR TABLET PO SCH (09:08)
[2016-09-27] MEDS: HydrALAZINE HCL 25 MG TABLET PO SCH ×2 (16:24→23:26)
[2016-09-27] MEDS: SOD FERRIC GLUC COMPLX/SUCROSE 125 MG in SODIUM CHLORIDE 0.9% 100 ML IV SCH (16:24)
[2016-09-27] MEDS: CefTRIAXone 1 GM/DEXTROSE 50 ML IV SCH (16:24)
[2016-09-27] MEDS: TERAZOSIN HCL 1 MG CAPSULE PO SCH (21:24)
[2016-09-28] VITALS (7 sets, daily range): BP systolic 125–158; BP diastolic 71–90
[2016-09-28] MEDS: HydrALAZINE HCL 25 MG TABLET PO SCH ×3 (08:00→23:21)
[2016-09-28] MEDS: DOCUSATE SODIUM 100 MG CAPSULE PO SCH ×2 (09:00→20:37)
[2016-09-28 09:11] LABS: BASOPHILS % (AUTO) 0.5 % (0.0-2.0); EOSINOPHILS % (AUTO) 2.1 % (1.0-6.0); HEMATOCRIT 25.2 % (36-46); LYMPHOCYTES # (AUTO) 0.5 K/uL (1.0-4.8); LYMPHOCYTES % (AUTO) 6.2 % (22.0-44.0); MEAN CORPUSCULAR HEMOGLOBIN 28.4 pg (26.0-34.0); MEAN CORPUSCULAR HGB CONC 31.6 G/dL (31.0-37.0); MEAN CORPUSCULAR VOLUME 90 fL (80-100); MONOCYTES # (AUTO) 0.5 K/uL (0.1-1.0); MONOCYTES % (AUTO) 6.1 % (2.0-9.0); NEUTROPHILS # (AUTO) 6.3 K/uL (1.8-7.7); NEUTROPHILS % (AUTO) 85.1 % (40.0-70.0); PLATELET COUNT (AUTO) 248 K/uL (150-450); RED CELL DISTRIBUTION WIDTH 15.8 % (11.5-14.5); WHITE BLOOD COUNT (AUTO) 7.5 K/uL (4.5-11.0)
[2016-09-28 09:22] LABS: CALCIUM, TOTAL 8.4 mg/dL (8.8-10.5); CREATININE 4.74 mg/dL (0.60-1.30); POTASSIUM 3.4 mmol/L (3.5-5.1)
[2016-09-28] MEDS: CALCIUM ACETATE 667 MG CAPSULE PO SCH ×3 (09:35→18:00)
[2016-09-28 09:42] LABS: INR 1.1 (0.9-1.1); PROTHROMBIN TIME 11.4 SEC (9.4-11.6)
[2016-09-28] MEDS: CALCITRIOL 0.25 MCG CAPSULE PO SCH (10:09)
[2016-09-28] MEDS: AmLODIPine BESYLATE 10 MG TABLET PO SCH (10:09)
[2016-09-28] MEDS: PANTOPRAZOLE SODIUM 40 MG DR TABLET PO SCH (10:09)
[2016-09-28] MEDS: NITROFURANTOIN/NITROFURAN MAC 100 MG CAPSULE [MACROBID] PO SCH (10:09)
[2016-09-28] MEDS: FUROSEMIDE 40 MG TABLET PO SCH ×2 (10:09→20:37)
[2016-09-28] MEDS ORDERED: SODIUM CHLORIDE 0.9% 1,000 ML IV ONE ×2 (15:29)
[2016-09-28] MEDS ORDERED: MANNITOL 25%-12.5 GM/50 ML VIAL IVP PRN (16:30)
[2016-09-28] MEDS ORDERED: HEPARIN SODIUM,PORCINE 1,000 UNITS/ML VIAL IVP ONE ×2 (16:30)
[2016-09-28] MEDS ORDERED: ALBUMIN HUMAN 25%-12.5GM/50ML IV BOTTLE IV PRN (16:30)
[2016-09-28] MEDS: OXYGEN THERAPY IH SCH (20:06)
[2016-09-28] MEDS: CefTRIAXone 1 GM/DEXTROSE 50 ML IV SCH (20:06)
[2016-09-28] MEDS: TERAZOSIN HCL 1 MG CAPSULE PO SCH (20:37)
[2016-09-28] MEDS: SOD FERRIC GLUC COMPLX/SUCROSE 125 MG in SODIUM CHLORIDE 0.9% 100 ML IV SCH (20:37)
[2016-09-29] VITALS (12 sets, daily range): BP systolic 133–156; BP diastolic 62–88
[2016-09-29] MEDS: ACETAMINOPHEN 325 MG TABLET PO PRN (06:53)
[2016-09-29 06:55] LABS: BASOPHILS % (AUTO) 0.3 % (0.0-2.0); EOSINOPHILS % (AUTO) 1.4 % (1.0-6.0); HEMATOCRIT 21.2 % (36-46); LYMPHOCYTES # (AUTO) 0.3 K/uL (1.0-4.8); LYMPHOCYTES % (AUTO) 5.9 % (22.0-44.0); MEAN CORPUSCULAR HEMOGLOBIN 29.6 pg (26.0-34.0); MEAN CORPUSCULAR HGB CONC 32.6 G/dL (31.0-37.0); MEAN CORPUSCULAR VOLUME 91 fL (80-100); MONOCYTES # (AUTO) 0.3 K/uL (0.1-1.0); MONOCYTES % (AUTO) 5.8 % (2.0-9.0); PLATELET COUNT (AUTO) 206 K/uL (150-450); RED BLOOD CELL COUNT(AUTO) 2.33 MIL/uL (4.00-5.20); RED CELL DISTRIBUTION WIDTH 16.6 % (11.5-14.5); WHITE BLOOD COUNT (AUTO) 5.7 K/uL (4.5-11.0)
[2016-09-29 07:10] LABS: CALCIUM, TOTAL 8.1 mg/dL (8.8-10.5); CREATININE 3.48 mg/dL (0.60-1.30); POTASSIUM 3.7 mmol/L (3.5-5.1)
[2016-09-29 07:39] LABS: HEMOGLOBIN 6.9 g/dL (12.0-16.0); NEUTROPHILS % (AUTO) 86.6 % (40.0-70.0)
[2016-09-29] MEDS: CALCIUM ACETATE 667 MG CAPSULE PO SCH ×3 (08:00→17:46)
[2016-09-29] MEDS ORDERED: SODIUM CHLORIDE 0.9% 250 ML IV ONE ×2 (08:58→17:29)
[2016-09-29] MEDS: FUROSEMIDE 40 MG TABLET PO SCH ×2 (09:00→20:14)
[2016-09-29] MEDS: DOCUSATE SODIUM 100 MG CAPSULE PO SCH ×2 (09:00→20:14)
[2016-09-29] MEDS: AmLODIPine BESYLATE 10 MG TABLET PO SCH (09:53)
[2016-09-29] MEDS: HydrALAZINE HCL 25 MG TABLET PO SCH ×3 (09:53→23:50)
[2016-09-29] MEDS: PANTOPRAZOLE SODIUM 40 MG DR TABLET PO SCH (09:53)
[2016-09-29] MEDS: OXYGEN THERAPY IH SCH ×2 (09:53→20:14)
[2016-09-29] MEDS: EPOETIN ALFA 10,000 UNITS/ML VIAL SQ SCH (10:07)
[2016-09-29] MEDS ORDERED: HEPARIN SODIUM,PORCINE 1,000 UNITS/ML VIAL IVP ONE (12:00)
[2016-09-29 12:31] LABS: HEMATOCRIT 24.6 % (36-46); HEMOGLOBIN 8.1 g/dL (12.0-16.0)
[2016-09-29] MEDS ORDERED: FentaNYL CITRATE-PF 100 MCG/2 ML VIAL ONE (13:20)
[2016-09-29] MEDS ORDERED: MIDAZOLAM HCL 2 MG/2 ML VIAL ONE (13:20)
[2016-09-29] MEDS ORDERED: LIDOCAINE HCL/PF 1% 30 ML VIAL ONE (13:21)
[2016-09-29] MEDS ORDERED: GELATIN SPONGE,ABSORBABLE 12-7 MM TP ONE (13:21)
[2016-09-29] MEDS ORDERED: FentaNYL CITRATE-PF 100 MCG/2 ML VIAL IVP ONE (14:39)
[2016-09-29] MEDS ORDERED: MIDAZOLAM HCL 2 MG/2 ML VIAL IVP ONE (14:39)
[2016-09-29] MEDS: NITROFURANTOIN/NITROFURAN MAC 100 MG CAPSULE [MACROBID] PO SCH (17:46)
[2016-09-29] MEDS: CALCITRIOL 0.25 MCG CAPSULE PO SCH (17:46)
[2016-09-29] MEDS: CefTRIAXone 1 GM/DEXTROSE 50 ML IV SCH (17:46)
[2016-09-29] MEDS: SOD FERRIC GLUC COMPLX/SUCROSE 125 MG in SODIUM CHLORIDE 0.9% 100 ML IV SCH (18:01)
[2016-09-29] MEDS: TERAZOSIN HCL 1 MG CAPSULE PO SCH (20:14)
[2016-09-30] VITALS: BP 165/84
[2016-09-30 05:01] VITALS: BP 155/76
[2016-09-30 07:28] VITALS: BP 148/87
[2016-09-30] MEDS: HydrALAZINE HCL 25 MG TABLET PO SCH ×2 (08:00→17:19)
[2016-09-30] MEDS: OXYGEN THERAPY IH SCH ×2 (08:19→20:24)
[2016-09-30] MEDS: CALCITRIOL 0.25 MCG CAPSULE PO SCH (08:20)
[2016-09-30] MEDS: PANTOPRAZOLE SODIUM 40 MG DR TABLET PO SCH (08:20)
[2016-09-30] MEDS: CALCIUM ACETATE 667 MG CAPSULE PO SCH ×3 (08:20→17:27)
[2016-09-30] MEDS: DOCUSATE SODIUM 100 MG CAPSULE PO SCH ×2 (08:20→20:24)
[2016-09-30] MEDS: NITROFURANTOIN/NITROFURAN MAC 100 MG CAPSULE [MACROBID] PO SCH (08:20)
[2016-09-30] MEDS ORDERED: SODIUM CHLORIDE 0.9% 2,000 ML IV ONE (08:52)
[2016-09-30] MEDS: FUROSEMIDE 40 MG TABLET PO SCH ×2 (09:00→20:24)
[2016-09-30] MEDS: ACETAMINOPHEN 325 MG TABLET PO PRN (09:10)
[2016-09-30 11:06] LABS: BASOPHILS % (AUTO) 0.6 % (0.0-2.0); HEMATOCRIT 24.1 % (36-46); HEMOGLOBIN 7.8 g/dL (12.0-16.0); LYMPHOCYTES # (AUTO) 0.2 K/uL (1.0-4.8); LYMPHOCYTES % (AUTO) 3.2 % (22.0-44.0); MEAN CORPUSCULAR HEMOGLOBIN 29.8 pg (26.0-34.0); MEAN CORPUSCULAR HGB CONC 32.2 G/dL (31.0-37.0); MEAN CORPUSCULAR VOLUME 92 fL (80-100); MONOCYTES # (AUTO) 0.4 K/uL (0.1-1.0); MONOCYTES % (AUTO) 5.2 % (2.0-9.0); PLATELET COUNT (AUTO) 216 K/uL (150-450); RED CELL DISTRIBUTION WIDTH 17.1 % (11.5-14.5); WHITE BLOOD COUNT (AUTO) 7.8 K/uL (4.5-11.0)
[2016-09-30 11:11] LABS: RBC MORPHOLOGY COMMENT ABNORMAL RBC MORPH
[2016-09-30 11:20] LABS: CALCIUM, TOTAL 7.9 mg/dL (8.8-10.5); CREATININE 3.39 mg/dL (0.60-1.30); POTASSIUM 3.4 mmol/L (3.5-5.1)
[2016-09-30 11:24] LABS: MAGNESIUM 1.4 mg/dL (1.80-2.40); PHOSPHORUS 3.6 mg/dL (2.5-4.9)
[2016-09-30 11:26] VITALS: BP 139/78
[2016-09-30] MEDS ORDERED: MANNITOL 25%-12.5 GM/50 ML VIAL IVP PRN (11:30)
[2016-09-30] MEDS ORDERED: DiphenhydrAMINE HCL 50 MG/ML VIAL IVP PRN (11:30)
[2016-09-30] MEDS ORDERED: HEPARIN SODIUM,PORCINE 1,000 UNITS/ML VIAL IVP ONE ×3 (11:30→12:00)
[2016-09-30] MEDS ORDERED: DiphenhydrAMINE HCL 50 MG/ML VIAL IVP ONE (12:00)
[2016-09-30] MEDS ORDERED: MAGNESIUM SULFATE 3 GM in DEXTROSE 5%-WATER 100 ML IV ONE (14:45)
[2016-09-30 15:29] VITALS: BP 157/90
[2016-09-30] MEDS: SOD FERRIC GLUC COMPLX/SUCROSE 125 MG in SODIUM CHLORIDE 0.9% 100 ML IV SCH (15:31)
[2016-09-30] MEDS: CefTRIAXone 1 GM/DEXTROSE 50 ML IV SCH (17:16)
[2016-09-30] MEDS: AmLODIPine BESYLATE 10 MG TABLET PO SCH (17:20)
[2016-09-30 20:01] VITALS: BP 133/71
[2016-09-30] MEDS: TERAZOSIN HCL 1 MG CAPSULE PO SCH (20:24)
[2016-10-01] MEDS ORDERED: HEPARIN SODIUM,PORCINE 1,000 UNITS/ML VIAL IVP ONE
[2016-10-01 00:05] VITALS: BP 138/73
[2016-10-01 04:35] VITALS: BP 158/85
[2016-10-01 06:06] LABS: BASOPHILS % (AUTO) 0.1 % (0.0-2.0); EOSINOPHILS % (AUTO) 1.9 % (1.0-6.0); HEMATOCRIT 26.2 % (36-46); HEMOGLOBIN 8.6 g/dL (12.0-16.0); LYMPHOCYTES # (AUTO) 0.5 K/uL (1.0-4.8); LYMPHOCYTES % (AUTO) 5.5 % (22.0-44.0); MEAN CORPUSCULAR HEMOGLOBIN 30.1 pg (26.0-34.0); MEAN CORPUSCULAR HGB CONC 32.7 G/dL (31.0-37.0); MEAN CORPUSCULAR VOLUME 92 fL (80-100); MONOCYTES # (AUTO) 0.5 K/uL (0.1-1.0); MONOCYTES % (AUTO) 6.2 % (2.0-9.0); PLATELET COUNT (AUTO) 277 K/uL (150-450); RED BLOOD CELL COUNT(AUTO) 2.85 MIL/uL (4.00-5.20); RED CELL DISTRIBUTION WIDTH 17.3 % (11.5-14.5); WHITE BLOOD COUNT (AUTO) 8.2 K/uL (4.5-11.0)
[2016-10-01 06:42] LABS: NEUTROPHILS % (AUTO) 86.3 % (40.0-70.0)
[2016-10-01 06:56] LABS: CALCIUM, TOTAL 8.6 mg/dL (8.8-10.5); CREATININE 3.13 mg/dL (0.60-1.30); PHOSPHORUS 3.5 mg/dL (2.5-4.9); POTASSIUM 3.5 mmol/L (3.5-5.1)
[2016-10-01 07:56] LABS: RBC MORPHOLOGY COMMENT ABNORMAL RBC MORPH
[2016-10-01] MEDS: OXYGEN THERAPY IH SCH ×2 (08:00→20:16)
[2016-10-01 09:21] VITALS: BP 137/76
[2016-10-01] MEDS: FUROSEMIDE 40 MG TABLET PO SCH ×2 (09:36→20:16)
[2016-10-01] MEDS: PANTOPRAZOLE SODIUM 40 MG DR TABLET PO SCH (09:36)
[2016-10-01] MEDS: HydrALAZINE HCL 25 MG TABLET PO SCH ×4 (09:36→23:30)
[2016-10-01] MEDS: NITROFURANTOIN/NITROFURAN MAC 100 MG CAPSULE [MACROBID] PO SCH (09:36)
[2016-10-01] MEDS: DOCUSATE SODIUM 100 MG CAPSULE PO SCH ×2 (09:36→20:16)
[2016-10-01] MEDS: CALCIUM ACETATE 667 MG CAPSULE PO SCH ×3 (09:36→18:44)
[2016-10-01] MEDS: CALCITRIOL 0.25 MCG CAPSULE PO SCH (09:36)
[2016-10-01] MEDS: AmLODIPine BESYLATE 10 MG TABLET PO SCH (09:36)
[2016-10-01] MEDS: EPOETIN ALFA 10,000 UNITS/ML VIAL SQ SCH (09:40)
[2016-10-01 11:35] VITALS: BP 148/82
[2016-10-01] MEDS: SOD FERRIC GLUC COMPLX/SUCROSE 125 MG in SODIUM CHLORIDE 0.9% 100 ML IV SCH (16:01)
[2016-10-01 16:50] VITALS: BP 123/74
[2016-10-01] MEDS: CefTRIAXone 1 GM/DEXTROSE 50 ML IV SCH (18:44)
[2016-10-01 19:35] VITALS: BP 134/76
[2016-10-01] MEDS: TERAZOSIN HCL 1 MG CAPSULE PO SCH (20:16)
[2016-10-02] VITALS (8 sets, daily range): BP systolic 113–140; BP diastolic 62–85
[2016-10-02 06:54] LABS: CREATININE 3.01 mg/dL (0.60-1.30); MAGNESIUM 1.8 mg/dL (1.80-2.40); PHOSPHORUS 3.3 mg/dL (2.5-4.9); POTASSIUM 3.3 mmol/L (3.5-5.1)
[2016-10-02 06:55] LABS: BASOPHILS % (AUTO) 0.3 % (0.0-2.0); EOSINOPHILS % (AUTO) 1.5 % (1.0-6.0); LYMPHOCYTES # (AUTO) 0.3 K/uL (1.0-4.8); LYMPHOCYTES % (AUTO) 5.2 % (22.0-44.0); MEAN CORPUSCULAR HEMOGLOBIN 30.6 pg (26.0-34.0); MEAN CORPUSCULAR VOLUME 93 fL (80-100); MONOCYTES # (AUTO) 0.3 K/uL (0.1-1.0); MONOCYTES % (AUTO) 4.7 % (2.0-9.0); NEUTROPHILS # (AUTO) 5.5 K/uL (1.8-7.7); PLATELET COUNT (AUTO) 190 K/uL (150-450); RED BLOOD CELL COUNT(AUTO) 1.95 MIL/uL (4.00-5.20); RED CELL DISTRIBUTION WIDTH 18.5 % (11.5-14.5); WHITE BLOOD COUNT (AUTO) 6.2 K/uL (4.5-11.0)
[2016-10-02 07:13] LABS: NEUTROPHILS % (AUTO) 88.3 % (40.0-70.0)
[2016-10-02 07:15] LABS: HEMATOCRIT 18.1 % (36-46)
[2016-10-02 07:53] LABS: RBC MORPHOLOGY COMMENT ABNORMAL RBC MORPH
[2016-10-02] MEDS: HydrALAZINE HCL 25 MG TABLET PO SCH ×2 (08:00→18:25)
[2016-10-02] MEDS: CALCIUM ACETATE 667 MG CAPSULE PO SCH ×3 (08:00→18:33)
[2016-10-02] MEDS: FUROSEMIDE 40 MG TABLET PO SCH ×2 (09:00→20:46)
[2016-10-02] MEDS: PANTOPRAZOLE SODIUM 40 MG DR TABLET PO SCH ×2 (09:00→18:25)
[2016-10-02] MEDS: AmLODIPine BESYLATE 10 MG TABLET PO SCH (09:00)
[2016-10-02] MEDS: DOCUSATE SODIUM 100 MG CAPSULE PO SCH ×2 (09:00→20:46)
[2016-10-02] MEDS: CALCITRIOL 0.25 MCG CAPSULE PO SCH ×2 (09:00→18:25)
[2016-10-02] MEDS ORDERED: SODIUM CHLORIDE 0.9% 500 ML IV ONE (11:40)
[2016-10-02] MEDS: OXYGEN THERAPY IH SCH ×2 (18:24→20:47)
[2016-10-02] MEDS: NITROFURANTOIN/NITROFURAN MAC 100 MG CAPSULE [MACROBID] PO SCH (18:25)
[2016-10-02] MEDS: SOD FERRIC GLUC COMPLX/SUCROSE 125 MG in SODIUM CHLORIDE 0.9% 100 ML IV SCH (18:26)
[2016-10-02] MEDS: OxyCODONE HCL/ACETAMINOPHEN 5-325 MG TABLET PO PRN (18:44)
[2016-10-02] MEDS ORDERED: SODIUM CHLORIDE 0.9% 250 ML IV ONE (19:49)
[2016-10-02] MEDS: TERAZOSIN HCL 1 MG CAPSULE PO SCH (20:46)
[2016-10-02] MEDS: CefTRIAXone 1 GM/DEXTROSE 50 ML IV SCH (20:46)
[2016-10-03 07:11] LABS: BASOPHILS % (AUTO) 0.2 % (0.0-2.0); EOSINOPHILS % (AUTO) 1.4 % (1.0-6.0); HEMATOCRIT 27.1 % (36-46); HEMOGLOBIN 8.8 g/dL (12.0-16.0); LYMPHOCYTES # (AUTO) 0.3 K/uL (1.0-4.8); LYMPHOCYTES % (AUTO) 3.8 % (22.0-44.0); MEAN CORPUSCULAR HEMOGLOBIN 30.1 pg (26.0-34.0); MEAN CORPUSCULAR HGB CONC 32.5 G/dL (31.0-37.0); MEAN CORPUSCULAR VOLUME 93 fL (80-100); MONOCYTES # (AUTO) 0.6 K/uL (0.1-1.0); MONOCYTES % (AUTO) 6.5 % (2.0-9.0); NEUTROPHILS # (AUTO) 7.6 K/uL (1.8-7.7); PLATELET COUNT (AUTO) 233 K/uL (150-450); RED BLOOD CELL COUNT(AUTO) 2.93 MIL/uL (4.00-5.20); RED CELL DISTRIBUTION WIDTH 16.9 % (11.5-14.5); WHITE BLOOD COUNT (AUTO) 8.6 K/uL (4.5-11.0)
[2016-10-03 07:29] LABS: NEUTROPHILS % (AUTO) 88.1 % (40.0-70.0); RBC MORPHOLOGY COMMENT ABNORMAL RBC MORPH
[2016-10-03 07:30] VITALS: BP 162/94
[2016-10-03 07:42] LABS: ALBUMIN 2.4 g/dL (3.4-5.0); BILIRUBIN,TOTAL 0.4 mg/dL (0.1-1.0); CALCIUM, TOTAL 8.7 mg/dL (8.8-10.5); CREATININE 3.26 mg/dL (0.60-1.30); MAGNESIUM 1.7 mg/dL (1.80-2.40); PHOSPHORUS 3.7 mg/dL (2.5-4.9); POTASSIUM 3.4 mmol/L (3.5-5.1); TOTAL PROTEIN, SERUM 5.2 g/dL (6.4-8.2)
[2016-10-03] MEDS: OXYGEN THERAPY IH SCH (08:00)
[2016-10-03] MEDS: DOCUSATE SODIUM 100 MG CAPSULE PO SCH ×3 (09:00→21:00)
[2016-10-03] MEDS: FUROSEMIDE 40 MG TABLET PO SCH ×2 (09:33→20:38)
[2016-10-03] MEDS: AmLODIPine BESYLATE 10 MG TABLET PO SCH (09:33)
[2016-10-03] MEDS: CALCIUM ACETATE 667 MG CAPSULE PO SCH ×3 (09:34→17:40)
[2016-10-03] MEDS: EPOETIN ALFA 10,000 UNITS/ML VIAL SQ SCH (09:34)
[2016-10-03] MEDS: HydrALAZINE HCL 25 MG TABLET PO SCH ×3 (09:34→16:20)
[2016-10-03] MEDS: NITROFURANTOIN/NITROFURAN MAC 100 MG CAPSULE [MACROBID] PO SCH (09:34)
[2016-10-03] MEDS: ACETAMINOPHEN 325 MG TABLET PO PRN (09:38)
[2016-10-03 13:33] VITALS: BP 136/81
[2016-10-03] MEDS ORDERED: MAGNESIUM SULFATE 2 GM in DEXTROSE 5%-WATER 50 ML IV ONE (14:15)
[2016-10-03 14:50] VITALS: BP 140/78
[2016-10-03] MEDS: SOD FERRIC GLUC COMPLX/SUCROSE 125 MG in SODIUM CHLORIDE 0.9% 100 ML IV SCH (15:04)
[2016-10-03] MEDS: CefTRIAXone 1 GM/DEXTROSE 50 ML IV SCH (16:19)
[2016-10-03] MEDS: OxyCODONE HCL/ACETAMINOPHEN 5-325 MG TABLET PO PRN (17:40)
[2016-10-03 20:44] VITALS: BP 147/73
[2016-10-03] MEDS: TERAZOSIN HCL 1 MG CAPSULE PO SCH (21:00)
[2016-10-04 00:15] VITALS: BP 157/100
[2016-10-04] MEDS: HydrALAZINE HCL 25 MG TABLET PO SCH ×5 (00:32→23:19)
[2016-10-04] MEDS: CALCIUM ACETATE 667 MG CAPSULE PO SCH ×3 (08:00→20:12)
[2016-10-04] MEDS: OXYGEN THERAPY IH SCH ×2 (08:00→20:00)
[2016-10-04] MEDS: CloNIDine HCL 0.1 MG TABLET PO PRN (08:04)
[2016-10-04 08:11] VITALS: BP 149/98
[2016-10-04] MEDS: PANTOPRAZOLE SODIUM 40 MG DR TABLET PO SCH (09:00)
[2016-10-04] MEDS: CALCITRIOL 0.25 MCG CAPSULE PO SCH (09:00)
[2016-10-04] MEDS: AmLODIPine BESYLATE 10 MG TABLET PO SCH (09:00)
[2016-10-04] MEDS: DOCUSATE SODIUM 100 MG CAPSULE PO SCH ×2 (09:00→20:12)
[2016-10-04] MEDS: FUROSEMIDE 40 MG TABLET PO SCH ×2 (09:00→20:12)
[2016-10-04] MEDS ORDERED: SODIUM CHLORIDE 0.9% 2,000 ML IV ONE (09:17)
[2016-10-04 11:15] LABS: BASOPHILS % (AUTO) 0.3 % (0.0-2.0); EOSINOPHILS % (AUTO) 0.9 % (1.0-6.0); HEMATOCRIT 24.2 % (36-46); HEMOGLOBIN 7.9 g/dL (12.0-16.0); LYMPHOCYTES # (AUTO) 0.3 K/uL (1.0-4.8); LYMPHOCYTES % (AUTO) 3.2 % (22.0-44.0); MEAN CORPUSCULAR HEMOGLOBIN 30.4 pg (26.0-34.0); MEAN CORPUSCULAR HGB CONC 32.9 G/dL (31.0-37.0); MEAN CORPUSCULAR VOLUME 92 fL (80-100); MONOCYTES # (AUTO) 0.7 K/uL (0.1-1.0); MONOCYTES % (AUTO) 7.5 % (2.0-9.0); NEUTROPHILS # (AUTO) 8.4 K/uL (1.8-7.7); PLATELET COUNT (AUTO) 200 K/uL (150-450); RED BLOOD CELL COUNT(AUTO) 2.62 MIL/uL (4.00-5.20); RED CELL DISTRIBUTION WIDTH 18.3 % (11.5-14.5); WHITE BLOOD COUNT (AUTO) 9.6 K/uL (4.5-11.0)
[2016-10-04 11:22] LABS: CALCIUM, TOTAL 8.3 mg/dL (8.8-10.5); CREATININE 3.67 mg/dL (0.60-1.30); POTASSIUM 3.5 mmol/L (3.5-5.1)
[2016-10-04 11:26] LABS: MAGNESIUM 1.7 mg/dL (1.80-2.40); PHOSPHORUS 3.4 mg/dL (2.5-4.9)
[2016-10-04 11:47] VITALS: BP 133/86
[2016-10-04 11:50] LABS: NEUTROPHILS % (AUTO) 88.1 % (40.0-70.0)
[2016-10-04 12:40] LABS: RBC MORPHOLOGY COMMENT ABNORMAL RBC MORPH
[2016-10-04] MEDS ORDERED: MAGNESIUM OXIDE 400 MG TABLET PO PRN (13:00)
[2016-10-04] MEDS ORDERED: MAGNESIUM SULFATE 2 GM in DEXTROSE 5%-WATER 50 ML IV PRN (13:00)
[2016-10-04] MEDS ORDERED: MAGNESIUM SULFATE 4 GM/WATER 100 ML IV PRN (13:00)
[2016-10-04 16:29] VITALS: BP 152/85
[2016-10-04] MEDS: SOD FERRIC GLUC COMPLX/SUCROSE 125 MG in SODIUM CHLORIDE 0.9% 100 ML IV SCH (16:29)
[2016-10-04] MEDS ORDERED: MAGNESIUM SULFATE 2 GM in DEXTROSE 5%-WATER 50 ML IV ONE (16:30)
[2016-10-04] MEDS ORDERED: HEPARIN SODIUM,PORCINE 1,000 UNITS/ML VIAL IVP ONE (17:01)
[2016-10-04] MEDS: CefTRIAXone 1 GM/DEXTROSE 50 ML IV SCH (17:13)
[2016-10-04 20:04] VITALS: BP 153/83
[2016-10-04] MEDS: TERAZOSIN HCL 1 MG CAPSULE PO SCH (20:12)
[2016-10-04] MEDS: OxyCODONE HCL/ACETAMINOPHEN 5-325 MG TABLET PO PRN (20:12)
[2016-10-04 22:00] LABS: HEMATOCRIT 25.4 % (36-46); HEMOGLOBIN 8.5 g/dL (12.0-16.0)
[2016-10-04 23:41] VITALS: BP 141/85
[2016-10-05 05:08] VITALS: BP 148/82
[2016-10-05] MEDS: OXYGEN THERAPY IH SCH (08:00)
[2016-10-05] MEDS: CALCIUM ACETATE 667 MG CAPSULE PO SCH ×3 (08:21→17:28)
[2016-10-05] MEDS: CALCITRIOL 0.25 MCG CAPSULE PO SCH (08:21)
[2016-10-05] MEDS: AmLODIPine BESYLATE 10 MG TABLET PO SCH (08:21)
[2016-10-05] MEDS: HydrALAZINE HCL 25 MG TABLET PO SCH ×2 (08:22→15:58)
[2016-10-05] MEDS: FUROSEMIDE 40 MG TABLET PO SCH (08:22)
[2016-10-05] MEDS: PANTOPRAZOLE SODIUM 40 MG DR TABLET PO SCH (08:22)
[2016-10-05] MEDS: OxyCODONE HCL/ACETAMINOPHEN 5-325 MG TABLET PO PRN ×2 (08:22→15:58)
[2016-10-05] MEDS: DOCUSATE SODIUM 100 MG CAPSULE PO SCH (08:23)
[2016-10-05 08:34] VITALS: BP 144/87
[2016-10-05 11:47] VITALS: BP 132/83
[2016-10-05 12:11] LABS: BASOPHILS % (AUTO) 0.3 % (0.0-2.0); EOSINOPHILS % (AUTO) 0.8 % (1.0-6.0); HEMATOCRIT 26.8 % (36-46); HEMOGLOBIN 8.5 g/dL (12.0-16.0); LYMPHOCYTES # (AUTO) 0.5 K/uL (1.0-4.8); LYMPHOCYTES % (AUTO) 4.8 % (22.0-44.0); MEAN CORPUSCULAR HEMOGLOBIN 29.9 pg (26.0-34.0); MEAN CORPUSCULAR HGB CONC 31.8 G/dL (31.0-37.0); MEAN CORPUSCULAR VOLUME 94 fL (80-100); MONOCYTES # (AUTO) 0.7 K/uL (0.1-1.0); MONOCYTES % (AUTO) 6.7 % (2.0-9.0); NEUTROPHILS # (AUTO) 8.4 K/uL (1.8-7.7); NEUTROPHILS % (AUTO) 87.4 % (40.0-70.0); PLATELET COUNT (AUTO) 232 K/uL (150-450); RED BLOOD CELL COUNT(AUTO) 2.85 MIL/uL (4.00-5.20); WHITE BLOOD COUNT (AUTO) 9.7 K/uL (4.5-11.0)
[2016-10-05 12:15] LABS: CALCIUM, TOTAL 8.7 mg/dL (8.8-10.5); CREATININE 4.25 mg/dL (0.60-1.30); POTASSIUM 3.5 mmol/L (3.5-5.1)
[2016-10-05 12:21] LABS: ALBUMIN 2.2 g/dL (3.4-5.0); BILIRUBIN,TOTAL 0.2 mg/dL (0.1-1.0); PHOSPHORUS 4.3 mg/dL (2.5-4.9); TOTAL PROTEIN, SERUM 4.9 g/dL (6.4-8.2)
[2016-10-05 15:45] VITALS: BP 141/81
[2016-10-05] MEDS: SOD FERRIC GLUC COMPLX/SUCROSE 125 MG in SODIUM CHLORIDE 0.9% 100 ML IV SCH (15:59)
[2016-10-05] MEDS ORDERED: PHOSLOC PO (16:36)
[2016-10-05] MEDS ORDERED: CALC25 PO (16:36)
[2016-10-05] MEDS ORDERED: CEFX1I IV (16:36)
[2016-10-05] MEDS ORDERED: EPOE10003 SQ (16:39)
[2016-10-05] MEDS ORDERED: FURO40 PO (16:40)
[2016-10-05] MEDS ORDERED: PANT40TA25 PO (16:41)
[2016-10-05] MEDS ORDERED: HYDR25 PO (16:41)
[2016-10-05] MEDS ORDERED: [UNRECOGNIZED DRUG - CODE] IV (16:43)
[2016-10-05] MEDS ORDERED: TERA1 PO (16:44)
[2016-10-05] MEDS ORDERED: ACET-2902 PO (16:46)
[2016-10-05] MEDS ORDERED: CLON.1 PO (16:46)
[2016-10-05] MEDS ORDERED: ONDA4 IV (16:47)
[2016-10-05] MEDS ORDERED: ZOLP5 PO (16:48)
[2016-10-05] MEDS ORDERED: PERCT PO (16:48)
[2016-10-05] MEDS: CefTRIAXone 1 GM/DEXTROSE 50 ML IV SCH (17:28)
== END 2016-10-05 19:25 | disposition short-term general hospital (02) | DRG 465 ==
LOC: EMS 11:16 → 6N 20:32 → ICU 09-25 18:30 → 5S 09-27 18:20 → 6N 10-03 20:10
PROVIDERS: ADMIT Hospitalist; ATTEND Internal Medicine
PROC: 30233N1 Transfusion of Nonautologous Red Blood Cells into Peripheral Vein, Percutaneous Approach (ICD-10-PCS; 2016-09-13)
PROC: BT141ZZ Fluoroscopy of Kidneys, Ureters and Bladder using Low Osmolar Contrast (ICD-10-PCS; 2016-09-14)
PROC: 0T788DZ Dilation of Bilateral Ureters with Intraluminal Device, Via Natural or Artificial Opening Endoscopic (ICD-10-PCS; principal; 2016-09-14 08:15)
PROC: 30233N1 Transfusion of Nonautologous Red Blood Cells into Peripheral Vein, Percutaneous Approach (ICD-10-PCS; 2016-09-23)
PROC: 30233N1 Transfusion of Nonautologous Red Blood Cells into Peripheral Vein, Percutaneous Approach (ICD-10-PCS; 2016-09-24)
PROC: 02HV33Z Insertion of Infusion Device into Superior Vena Cava, Percutaneous Approach (ICD-10-PCS; 2016-09-25)
PROC: 3E043GC Introduction of Other Therapeutic Substance into Central Vein, Percutaneous Approach (ICD-10-PCS; 2016-09-25)
PROC: 30233N1 Transfusion of Nonautologous Red Blood Cells into Peripheral Vein, Percutaneous Approach (ICD-10-PCS; 2016-09-26)
PROC: 5A1D60Z (ICD-10-PCS; 2016-09-26)
PROC: 30233N1 Transfusion of Nonautologous Red Blood Cells into Peripheral Vein, Percutaneous Approach (ICD-10-PCS; 2016-09-27)
PROC: 30233N1 Transfusion of Nonautologous Red Blood Cells into Peripheral Vein, Percutaneous Approach (ICD-10-PCS; 2016-09-29)
PROC: 0TB13ZX Excision of Left Kidney, Percutaneous Approach, Diagnostic (ICD-10-PCS; 2016-09-30)
PROC: 30233N1 Transfusion of Nonautologous Red Blood Cells into Peripheral Vein, Percutaneous Approach (ICD-10-PCS; 2016-10-02)
DX: N13.2 Hydronephrosis with renal and ureteral calculous obstruction (principal); E87.2 Acidosis; N17.9 Acute kidney failure, unspecified; I12.0 Hypertensive chronic kidney disease with stage 5 chronic kidney disease or end stage renal disease; E11.21 Type 2 diabetes mellitus with diabetic nephropathy; E44.1 Mild protein-calorie malnutrition; E87.1 Hypo-osmolality and hyponatremia; C64.9 Malignant neoplasm of unspecified kidney, except renal pelvis; D63.1 Anemia in chronic kidney disease; E11.22 Type 2 diabetes mellitus with diabetic chronic kidney disease; D50.0 Iron deficiency anemia secondary to blood loss (chronic); E88.09 Other disorders of plasma-protein metabolism, not elsewhere classified; E87.6 Hypokalemia; N18.6 End stage renal disease; N93.9 Abnormal uterine and vaginal bleeding, unspecified; R80.9 Proteinuria, unspecified; N30.91 Cystitis, unspecified with hematuria; E78.5 Hyperlipidemia, unspecified; E21.3 Hyperparathyroidism, unspecified; Z90.79 Acquired absence of other genital organ(s); Z90.722 Acquired absence of ovaries, bilateral; Z87.442 Personal history of urinary calculi; Z79.899 Other long term (current) drug therapy; Z87.440 Personal history of urinary (tract) infections; Z90.710 Acquired absence of both cervix and uterus; Z82.49 Family history of ischemic heart disease and other diseases of the circulatory system; Z83.6 Family history of other diseases of the respiratory system; Z68.29 Body mass index [BMI] 29.0-29.9, adult; Z28.9 Immunization not carried out for unspecified reason
CPT/HCPCS: 36561; 50200; 74000; 74176; 76770; 76830; 76856; 76937; 82271; 82570; 82575; 82728; 83540; 83550; 83735; 84100; 84132; 84156; 84166; 84300; 84540; 85014; 85018; 86706; 86850; 86900; 86901; 86920; 87081; 87086; 87340; 88305; 88342; 90935; 93970; 99285; J0696; J0885; J1100; J1200; J1644; J2250; J2405; J2704; J2765; J2916; J3010; J3475; J3480; J3490; J7030; J7040; J7050; J7060; J7120; P9016; Q9966; Q9967